=== PATIENT | male | born 1955 | race Two or more races ===

== ENCOUNTER 2024-12-01 12:18 | Emergency (ER) | payer OTHER ==
[~2024-12-01] VITALS: Ht 170.2 cm; Wt 70.2 kg
[2024-12-01 14:01] LABS: Urine Protein, UAD 1+ (Negative); Urine WBC Clumps PRESENT /hpf (None Seen)
--- NOTE | 2024-12-01 15:35 | ED.PDOC ---
General HPI Comments 69M presents to the ER w/ prior MHx of HTN, Prostate;SHx of Mass Sx and the c/c of urinary problems. Pt reports on having painful urination for 5 days and had his catheter removed 10 days ago. Pt's BP was elevated in triage of 170/109. Pt notes on not taking his BP medications today. Denies chills, fever, N/V/D, SOB, CP. Chief Complaint: Urinary Time Seen by MD: 15:30 Reviewed notes: Nurses Notes, Medications, Allergies Allergies: Coded Allergies: NO KNOWN ALLERGIES (Unverified , 12/01/24) Information Source: Patient Mode of Arrival: Ambulatory Severity: Moderate Inability to void: Moderate Timing: Days Duration: Since onset, Days Prehospital treatment: None Onset: Spontaneous Symptoms: Dysuria History of: Prostatitis Location: None associated signs and symptoms: Dysuria Past Medical History PAST MEDICAL HISTORY: HTN Past Medical History (Other): Prostate Surgical History: Denies all surgeries Family History Family History: Reviewed,noncontributory to illness, Unknown Social History Smoker: Non-Smoker Alcohol: Denies ETOH Use Drugs: Denies Drug Use Lives In: Home Constitutional: denies: chills, diaphoresis, fatigue, fever, malaise, sweats, weakness, others EENTM: denies: blurred vision, double vision, ear bleeding, ear discharge, ear drainage, ear pain, ear ringing, eye pain, eye redness, hearing loss, mouth pain, mouth swelling, nasal discharge, nose bleeding, nose congestion, nose pain, photophobia, tearing, throat pain, throat swelling, voice changes, others Respiratory: denies: cough, hemoptysis, orthopnea, SOB at rest, shortness of breath, SOB with excertion, stridor, wheezing, others Cardiovascular: denies: chest pain, dizzy spells, diaphoresis, Dyspnea on exertion, edema, irregular heart beat, left arm pain, lightheadedness, palpitations, PND, syncope, others Gastrointestinal: denies: abdomen distended, abdominal pain, blood streaked bowels, constipated, diarrhea, dysphagia, difficulty swallowing, hematemesis, melena, nausea, poor appetite, poor fluid intake, rectal bleeding, rectal pain, vomiting, others Genitourinary: reports: dysuria; denies: burning, flank pain, frequency, hematuria, incontinence, penile discharge, penile sore, pain, testicle pain, testicle swelling, urgency, others Neurological: denies: dizziness, fainting, headache, left sided numbness, left sided weakness, numbness, paresthesia, pre-existing deficit, right sided numbness, right sided weakness, seizure, speech problems, tingling, tremors, weakness, others Musculoskeletal: denies: back pain, gout, joint pain, joint swelling, muscle pain, muscle stiffness, neck pain, others Integumetry: denies: bruises, change in color, change in hair/nails, dryness, laceration, lesions, lumps, rash, wounds, others Allergic/Immunocompromised: denies: Difficulty Healing, Frequent Infections, Hives, Itching, others Hematologic/Lymphatic: denies: anemia, blood clots, easy bleeding, easy bruising, swollen glands, others Endocrine: denies: excessive hunger, excessive sweating, excessive thirst, excessive urination, flushing, intolerance to cold, intolerance to heat, unexplained weight gain, unexplained weight loss, others Psychiatric: denies: anxiety, bipolar disorder, depression, hopeless, panic disorder, schizophrenia, sleepless, suicidal, others All Other Systems: Reviewed and Negative Physical Exam General Appearance: No Apparent Distress, Normal HEENT: Normal ENT Inspection, PERRL/EOMI, Pharynx Normal, TMs Normal Neck: Full Range of Motion, Non-Tender, Normal, Normal Inspection Respiratory: Chest Non-Tender, Lungs Clear, No Accessory Muscle Use, No Respiratory Distress, Normal Breath Sounds Cardiovascular: No Edema, No JVD, No Murmur, No Gallop, Normal Peripheral Pulses, Regular Rate/Rhythm Breast Exam: Deferred Gastrointestinal: No Organomegaly, Non Tender, No Pulsatile Mass, Normal Bowel Sounds, Soft, Other (Bilateral flank pain) Genitalia: Deferred Pelvic: Deferred Rectal: Deferred Extremities: No calf tenderness, Normal capillary refill, Normal inspection, Normal range of motion, Non-tender, No pedal edema Musculoskeletal : Apperance: Normal Neurologic: Alert, water quality manager II-XII nml as Tested, No Motor Deficits, Normal Affect, Normal Mood, No Sensory Deficits Cerebellar Function: Normal Reflexes: Normal Skin: Dry, Normal Color, Warm Peripheral Pulses: 1+ carotid (R), 1+ carotid (L) Lymphatic: No Adenopathy Was a procedure done? Was a procedure done?: No Differential Diagnosis Kidney stone (Female): N/A Kidney stone (Male): DJD, Pyelonephritis, Urinary tract infection Penile/Scrotal: Prostatitis, UTI Urinary Problem (Male): Prostatitis, UTI Urinary Problem (Female): N/A X-Ray, Labs, Meds, VS Vital Signs Date Time Temp Pulse Resp B/P (MAP) Pulse Ox O2 Delivery O2 Flow Rate FiO2 12/01/24 12:28 98.7 108 20 170/109 (129) 95 98.7 Lab Test 12/01/24 12:34 Range/Units Urine Color Light-brown Yellow Urine Clarity Ex.turbid Clear Urine pH 6.0 5.0-9.0 Urine Specific [place] 1.009 1.001-1.035 Urine Protein 1+ H Negative Urine Ketones Negative Negative Urine Blood 2+ H Negative /uL Urine Nitrite 2+ H Negative Urine Bilirubin Negative Negative Urine Urobilinogen Normal Negative mg/dL Urine Leukocyte Esterase 3+ Negative /uL Urine RBC 35 0 - 3 /hpf Urine WBC Clumps Present None Seen /hpf Urine Microscopic WBC 5086 H 0-3 /HPF Urine Squamous Epithelial Cells None seen <5 /hpf Urine Bacteria None seen None Seen /hpf Urine Glucose Normal Normal mg/dL X-Ray, Labs, Meds, VS Comment 69-year-old male presented to the the department because of inability to urinate full and also feels tired no fever no chills neck the urine shows 1+ protein 2+ blood 3+ leukocyte esterase and white BC clumps Patient had a catheter in for long time for prostatitis Patient will be discharged home with antibiotic he received Rocephin in the ER Time of 1ST Reevaluation: 16:00 Reevaluation 1ST: Unchanged Consultation: PCP, Urology Patient Education/Counseling: Diagnosis, Treatment, Prognosis, Need For Follow Up Family Education/Counseling: Diagnosis, Treatment, Prognosis, Need For Follow Up, No Family Present SEPSIS Sepsis Screen Date sepsis recognized/suspect: Dec 01, 2024 Time Sepsis recognized/suspect: 1229 Recent Procedure: No On Antibiotic Therapy: No Respiratory Rate >20: No Heart Rate >90: Yes Temp<36 C (96.8 F) or >38.3 C: No SBP <90 or MAP <65 mmHG: No New Acute Mental Status Change: No Is the patient on CPAP, BIPAP,: No Vital Signs Date Time Temp Pulse Resp B/P (MAP) Pulse Ox O2 Delivery O2 Flow Rate FiO2 12/01/24 12:28 98.7 108 20 170/109 (129) 95 98.7 Departure 1 Departure Time of Disposition: 16:08 Impression: Primary Impression: Prostatitis Additional Impressions: UTI (urinary tract infection) Hypertension BPH (benign prostatic hyperplasia) Disposition: HOME / SELF CARE / HOMELESS Condition: Fair Additional Instructions: Push fluids and follow up with your urologist e-Prescriptions Tamsulosin Hcl (Flomax) 0.4 Mg Cap 0.4 MG PO DAILY for 15 Days, #15 CAP Prov: BRAYAN LEON MD 12/01/24 Ciprofloxacin Hcl (Cipro) 500 Mg Tab 1 TAB PO BID for 10 Days, #20 TAB Prov: BRAYAN LEON MD 12/01/24 Discharged With: Self Critical Care Note Critical Care Time?: No Stability Stability form required: No Heart Score Heart Score: Heart Score Response (Comments) Value History N/A 0 EKG N/A 0 Age >65 2 Risk Factors 1 or 2 risk factors 1 Troponin N/A 0 Total 3 I personally scribed for BRAYAN LEON MD ([email or web address]) on 12/01/24 at 15:35. Electronically submitted by Francisco Pinzon ([email or web address]). BRAYAN LEON MD Dec 01, 2024 15:35
[2024-12-01] MEDS ORDERED: cefTRIAXone W LIDOCAINE 1 GM IM IM ONE (15:45)
[2024-12-01] MEDS ORDERED: TAMS-35 PO (16:11)
[2024-12-01] MEDS ORDERED: CIPR-173 PO (16:11)
[2024-12-01 16:24] VITALS: BP 177/108; TEMP 98.4
[2024-12-01] MEDS: cefTRIAXone SOD 1,000 MG VL IM ONE (16:35)
[2024-12-01] MEDS: HYDROcodone-ACET 5/325MG TAB PO ONE (16:35)
[2024-12-01] MEDS: LIDOCAINE 1% HCL (LOCAL ANESTH.) INJ 20ML MDV IJ ONE (16:36)
[2024-12-01 16:52] VITALS: PULSE 84; RESP 16; O2SAT 98
== END 2024-12-01 16:55 | disposition home or self-care (01) ==
LOC: ER 12:18
DX: N41.9 Inflammatory disease of prostate, unspecified (principal); N39.0 Urinary tract infection, site not specified; N40.0 Benign prostatic hyperplasia without lower urinary tract symptoms; I10 Essential (primary) hypertension; Z91.148 Patient's other noncompliance with medication regimen for other reason
CPT/HCPCS: 81001; 96372; 99283; J0696; J2003

== ENCOUNTER 2025-01-13 17:22 | Inpatient (IN) | payer OTHER ==
[~2025-01-13] VITALS: Ht 170.2 cm; Wt 72.7 kg
[~2025-01-13 17:22] MED LIST: CIPR-173 PO; TAMS-35 PO
[2025-01-13] MEDS ORDERED: CEFD300C2 PO (18:29)
[2025-01-13] MEDS ORDERED: ONDA-180 PO (18:29)
[2025-01-13] MEDS ORDERED: AMLO1TAB22 PO (18:29)
[2025-01-13 18:35] LABS: Hematocrit 36.7 % (41.0-53.0); Hemoglobin 12.3 g/dL (13.5-17.5); Mean Corpuscular Hemoglobin 27.6 pg (28.0-32.0); Mean Corpuscular Volume 82.4 fL (80.0-100.0); Nucleated Red Blood Cells % 0.0 %
--- NOTE | 2025-01-13 18:37 | ED.PDOC ---
History of Present Illness HPI Comments 69 y/o M presents with nonradiating, lower abdominal cramping, nausea, vomiting, and occasional shortness of breath. Patient endorses on onset of symptoms 4x days into his Levaquin antibiotic treatment he was prescribed by his PCP for 2x week history of dysuria for UTI. Patient comments on still having symptoms after complete cessation of medication 3x days ago. He states on being able to eat, this morning, without vomiting. Denial of any fever, chills, diarrhea, constipation, chest pain, or further associated symptoms. Chief Complaint: Urinary Time Seen by MD: 18:15 Reviewed Notes: Nurses Notes, Medications, Allergies Allergies: Coded Allergies: NO KNOWN ALLERGIES (Unverified , 12/01/24) Home Meds Active Scripts Amlodipine Besylate (Amlodipine Besylate) 5 Mg Tab, 1 TAB PO DAILY, #90 TAB 3 Refills Prov:CAMRON ASHLEY MD 01/13/25 Ondansetron HCl (Ondansetron Hydrochloride) 8 Mg Tab, 8 MG PO Q6HP PRN, #30 TAB Prov:CAMRON ASHLEY MD 01/13/25 Cefdinir (Cefdinir) 300 Mg Cap, 1 CAP PO BID for 10 Days, #20 CAP Prov:CAMRON ASHLEY MD 01/13/25 Tamsulosin Hcl (Flomax) 0.4 Mg Cap, 0.4 MG PO DAILY for 15 Days, #15 CAP Prov:BRAYAN LEON MD 12/01/24 Ciprofloxacin Hcl (Cipro) 500 Mg Tab, 1 TAB PO BID for 10 Days, #20 TAB Prov:BRAYAN LEON MD 12/01/24 Information Source: Patient Mode of Arrival: Ambulatory Past Medical History PAST MEDICAL HISTORY: HTN Surgical History: Denies all surgeries Family History Family History: Reviewed,noncontributory to illness, Unknown Social History Smoker: Non-Smoker Alcohol: Denies ETOH Use Drugs: Denies Drug Use Lives In: Home All Other Systems: Reviewed and Negative (Comprehensive systems review obtained and negative except for what is stated in the HPI.) Physical Exam General Appearance: Mild Distress, Normal HEENT: Normal ENT Inspection, Pharynx Normal, TMs Normal Neck: Full Range of Motion, Non-Tender, Normal, Normal Inspection Respiratory: Chest Non-Tender, Lungs Clear, No Accessory Muscle Use, No Respiratory Distress, Normal Breath Sounds Cardiovascular: No Edema, No JVD, No Murmur, No Gallop, Normal Peripheral Pulses, Regular Rate/Rhythm Breast Exam: Deferred Gastrointestinal: No Organomegaly, Non Tender, No Pulsatile Mass, Normal Bowel Sounds, Soft Genitalia: Deferred Pelvic: Deferred Rectal: Deferred Extremities: No calf tenderness, Normal capillary refill, Normal inspection, Normal range of motion, Non-tender, No pedal edema Musculoskeletal : Apperance: Normal Neurologic: Alert, flyer builder II-XII nml as Tested, No Motor Deficits, Normal Affect, Normal Mood, No Sensory Deficits Cerebellar Function: Normal Reflexes: Normal Skin: Dry, Normal Color, Warm Lymphatic: No Adenopathy Was a procedure done? Was a procedure done?: Yes Sedation Sedation?: No Informed consent obtained: Yes Other Procedure Procedure indwelling cary catheter Indication urinary retention with renal failure Anesthetic topical Prep betadyne Success yes Informed consent obtained: Yes Risks, benefits, and alternati: Yes Notes 24 fr coude Differential Dx Considerations may include: UTI, gastritis, gastroenteritis, viral syndrome, electrolyte imbalance, dehydration, unintended medication side effect, among others X-Ray, Labs, Meds, VS Vital Signs Date Time Temp Pulse Resp B/P (MAP) Pulse Ox O2 Delivery O2 Flow Rate FiO2 01/14/25 00:30 85 16 140/82 01/13/25 22:35 Room Air* 0 21 01/13/25 22:35 97.4 99 12 163/88 (113) 98 97.4 01/13/25 19:23 175/106 01/13/25 19:02 Room Air* 0 21 01/13/25 19:00 97.9 90 16 175/106 (129) 96 97.9 01/13/25 17:24 97.8 97 18 188/108 88 97.8 Lab Test 01/14/25 00:54 01/13/25 23:13 01/13/25 22:52 01/13/25 19:09 Range/Units Potassium Level 4.6 3.5-5.1 mmol/L POC Glucose 239 H 125 H 70-106 mg/dl Lactic Acid Level 1.2 0.4-2.0 mmol/L Test 01/13/25 18:25 01/13/25 18:00 Range/Units White Blood Count 9.8 4.4-10.8 10^3/uL Red Blood Count 4.45 L 4.5-5.90 10^6/uL Hemoglobin 12.3 L 13.5-17.5 g/dL Hematocrit 36.7 L 41.0-53.0 % Mean Corpuscular Volume 82.4 80.0-100.0 fL Mean Corpuscular Hemoglobin 27.6 L 28.0-32.0 pg Mean Corpuscular Hemoglobin Concent 33.5 32.0-36.0 g/dL Red Cell Distribution Width 15.0 H 11.8-14.3 % Platelet Count 256 140-450 10^3/uL Mean Platelet Volume 7.1 6.9-10.8 fL Neutrophils (%) (Auto) 74.0 37.0-80.0 % Lymphocytes (%) (Auto) 19.1 10.0-50.0 % Monocytes (%) (Auto) 5.4 0.0-12.0 % Eosinophils (%) (Auto) 1.2 0.0-7.0 % Basophils (%) (Auto) 0.3 0.0-2.0 % Neutrophils # (Auto) 7.2 1.6-8.6 10 ^3/uL Lymphocytes # (Auto) 1.9 0.4-5.4 10 ^3/uL Monocytes # (Auto) 0.5 0-1.3 10 ^3/uL Eosinophils # (Auto) 0.1 0-0.8 10 ^3/uL Basophils # (Auto) 0 0-0.2 10 ^3/uL Nucleated Red Blood Cells 0.0 % Sodium Level 136 136-145 mmol/L Potassium Level 6.2 *H 3.5-5.1 mmol/L Chloride Level 103 98-107 mmol/L Carbon Dioxide Level 20 20-31 mmol/L Anion Gap 13 5-15 Blood Urea Nitrogen 107 *H 9-23 mg/dL Creatinine 12.99 *H 0.700-1.30 mg/dL Glomerular Filtration Rate Calc 4 >90 mL/min BUN/Creatinine Ratio 8.2 L 10.0-20.0 Serum Glucose 85 74-106 mg/dL Calcium Level 9.5 8.7-10.4 mg/dL Total Bilirubin 0.5 0.2-1.0 mg/dL Aspartate Amino Transferase (AST) 18 13-40 U/L Alanine Aminotransferase (ALT) 20 7-40 U/L Alkaline Phosphatase 125 H 46-116 U/L Total Protein 7.1 5.7-8.2 g/dL Albumin 4.5 3.2-4.8 g/dL Lipase 65 H 12-53 U/L Urine Color Colorless Yellow Urine Clarity Clear Clear Urine pH 6.5 5.0-9.0 Urine Specific [place] 1.008 1.001-1.035 Urine Protein Negative Negative Urine Ketones Negative Negative Urine Blood Trace H Negative /uL Urine Nitrite Negative Negative Urine Bilirubin Negative Negative Urine Urobilinogen Normal Negative mg/dL Urine Leukocyte Esterase Negative Negative /uL Urine RBC 1 0 - 3 /hpf Urine Microscopic WBC 2 0-3 /HPF Urine Squamous Epithelial Cells None seen <5 /hpf Urine Bacteria None seen None Seen /hpf Urine Glucose Normal Normal mg/dL Current Medications Medications (Trade) Dose Ordered Sig/Delmis Route Start Time Stop Time Status Last Admin Hydralazine HCl (Apresoline Tablet) 25 mg ONCE ONCE PO 01/13/25 18:30 01/13/25 18:31 DC 01/13/25 19:23 Sodium Chloride 500 ml @ 500 mls/hr Q1H ONCE IV 01/13/25 19:00 01/13/25 19:59 DC 01/13/25 19:22 Ceftriaxone Sodium 50 ml @ 100 mls/hr ONCE ONCE IV 01/13/25 19:00 01/13/25 19:29 DC 01/13/25 19:22 Zirconium Oxide (Lokelma) 10 gm ONCE ONCE PO 01/13/25 19:00 01/13/25 19:01 DC 01/13/25 19:22 Insulin Human Regular (InsuLIN R) 10 units ONCE ONCE IV 01/13/25 21:00 01/13/25 21:03 DC 01/13/25 23:00 Dextrose 50 ml ONCE ONCE IV 01/13/25 21:00 01/13/25 21:03 DC 01/13/25 22:10 Sodium Bicarbonate 50 ml ONCE ONCE IV 01/13/25 21:00 01/13/25 21:03 DC 01/13/25 23:00 Calcium Gluconate/ Sodium Chloride 50 ml @ 120 mls/hr ONCE ONCE IV 01/13/25 21:00 01/13/25 21:24 DC 01/13/25 23:00 Morphine Sulfate 4 mg ONCE ONCE IV 01/14/25 00:00 01/14/25 00:01 DC 01/14/25 00:30 Time of 1ST Reevaluation: 18:45 Reevaluation 1ST: Unchanged Patient Education/Counseling: Diagnosis, Treatment, Need For Follow Up Family Education/Counseling: No Family Present SEPSIS Sepsis Screen Date sepsis recognized/suspect: Jan 13, 2025 Time Sepsis recognized/suspect: 1725 Recent Procedure: No On Antibiotic Therapy: No Respiratory Rate >20: No Heart Rate >90: No Temp<36 C (96.8 F) or >38.3 C: No SBP <90 or MAP <65 mmHG: No New Acute Mental Status Change: No Is the patient on CPAP, BIPAP,: No Physician Orders Ct Ab Pel Wo Con-No Oral Or Iv (01/13/25 18:54) Insert Cary Catheter QSHIFT (01/13/25 18:55) Blood Culture (01/13/25 18:57) Communication Order (01/13/25 20:51) Admit (01/14/25 01:46) Code Status (01/14/25 01:46) Vital Signs .PER UNIT PROTOCOL (01/14/25 01:46) Review Orders With Adm. (01/14/25 01:46) Encourage Activity As Tolerate (01/14/25 01:46) Sodium Chloride 0.9% (01/14/25 02:00) Oxygen By Face Mask (01/14/25 01:46) Docusate Sodium Capsule (Colace Capsule) (01/14/25 02:00) Acetaminophen Tablet (Tylenol Tablet) (01/14/25 02:00) Notify Md Of Changes From Base (01/14/25 01:46) Advance Directive (01/14/25 01:46) Basic Metabolic Panel (01/14/25 05:00) Basic Metabolic Panel (01/15/25 05:00) Basic Metabolic Panel (01/16/25 05:00) Basic Metabolic Panel (01/17/25 05:00) Basic Metabolic Panel (01/18/25 05:00) Basic Metabolic Panel (01/19/25 05:00) Complete Blood Count (01/14/25 05:00) Complete Blood Count (01/15/25 05:00) Complete Blood Count (01/16/25 05:00) Complete Blood Count (01/17/25 05:00) Complete Blood Count (01/18/25 05:00) Complete Blood Count (01/19/25 05:00) Urine Bacterial Culture (01/14/25 01:46) Patient Condition (01/14/25 01:46) Allergies (01/14/25 01:46) Hydrocodone-Acet 5/325mg Tab ([place] 5/32 (01/14/25 02:00) Ondansetron Hcl (Zofran) (01/14/25 02:00) Morphine Sulfate Injection (01/14/25 02:00) Sequential Compression Device (01/14/25 ) Nitroglycerin Sublingual (Ntrostat Subli (01/14/25 02:00) Morphine Sulfate Injection (01/14/25 02:00) Stat Ekg For Chest Pain (01/14/25 01:46) Notify Md Of Changes From Base (01/14/25 01:46) Automatic Lathe Setter For 24 Hours (01/14/25 01:46) Emergency Dysrhythmia Protocol (01/14/25 01:46) Rhythm Strips Once Every Shift (01/14/25 01:46) Oxygen By Nasal Cannula (01/14/25 01:46) Kidney (01/14/25 01:46) *[facility] (01/14/25 01:46) * Urology Consult (01/14/25 01:46) Renal Standard(2gna,3gk,Lopho) (01/14/25 Breakfast) Ceftriaxone 1gm/50ml D5w (Rocephin) (01/14/25 21:00) Tamsulosin Hydrochloride (Flomax) (01/14/25 10:00) Hydralazine Injection (Apresoline Inject (01/14/25 02:00) Vital Signs Date Time Temp Pulse Resp B/P (MAP) Pulse Ox O2 Delivery O2 Flow Rate FiO2 01/14/25 00:30 85 16 140/82 01/13/25 22:35 Room Air* 0 21 01/13/25 22:35 97.4 99 12 163/88 (113) 98 97.4 01/13/25 19:23 175/106 01/13/25 19:02 Room Air* 0 21 01/13/25 19:00 97.9 90 16 175/106 (129) 96 97.9 01/13/25 17:24 97.8 97 18 188/108 88 97.8 Laboratory Tests Test 01/13/25 18:25 01/13/25 19:09 White Blood Count 9.8 10^3/uL (4.4-10.8) Lactic Acid Level 1.2 mmol/L (0.4-2.0) Medications Medications Dose Ordered Sig/Delmis Route Start Time Stop Time Status Last Admin Dose Admin Calcium Gluconate/ Sodium Chloride 50 ml @ 120 mls/hr ONCE ONCE IV 01/13/25 21:00 01/13/25 21:24 DC 01/13/25 23:00 Ceftriaxone Sodium 50 ml @ 100 mls/hr ONCE ONCE IV 01/13/25 19:00 01/13/25 19:29 DC 01/13/25 19:22 Dextrose 50 ml ONCE ONCE IV 01/13/25 21:00 01/13/25 21:03 DC 01/13/25 22:10 Hydralazine HCl 25 mg ONCE ONCE PO 01/13/25 18:30 01/13/25 18:31 DC 01/13/25 19:23 Insulin Human Regular 10 units ONCE ONCE IV 01/13/25 21:00 01/13/25 21:03 DC 01/13/25 23:00 Morphine Sulfate 4 mg ONCE ONCE IV 01/14/25 00:00 01/14/25 00:01 DC 01/14/25 00:30 Sodium Bicarbonate 50 ml ONCE ONCE IV 01/13/25 21:00 01/13/25 21:03 DC 01/13/25 23:00 Sodium Chloride 500 ml @ 500 mls/hr Q1H ONCE IV 01/13/25 19:00 01/13/25 19:59 DC 01/13/25 19:22 Zirconium Oxide 10 gm ONCE ONCE PO 01/13/25 19:00 01/13/25 19:01 DC 01/13/25 19:22 Departure 1 Departure Time of Disposition: 20:30 Impression: Primary Impression: UTI (urinary tract infection) Additional Impressions: BPH (benign prostatic hyperplasia) Hypertension Disposition: 09 ADMITTED INPATIENT Condition: Stable Additional Instructions: Follow up with your primary physician Return to the Emergency Department for any worsening symptoms or concerns e-Prescriptions Amlodipine Besylate (Amlodipine Besylate) 5 Mg Tab 1 TAB PO DAILY, #90 TAB 3 Refills Prov: NOWLIS,CAMRON A MD 01/13/25 Ondansetron HCl (Ondansetron Hydrochloride) 8 Mg Tab 8 MG PO Q6HP PRN, #30 TAB Prov: CAMRON ASHLEY MD 01/13/25 Cefdinir (Cefdinir) 300 Mg Cap 1 CAP PO BID for 10 Days, #20 CAP Prov: CAMRON ASHLEY MD 01/13/25 Comments 69-year-old male with acute renal failure with hyperkalemia due to acute urinary retention. I was able to place a Cary catheter with clear urine drainage. Patient had hyperkalemia and was given Lokelma. Patient will need to be admitted for acute urinary retention and acute renal failure with hyperkalemia Critical Care Note Critical Care Time?: No Stability Stability form required: No Heart Score Heart Score: Heart Score Response (Comments) Value History N/A 0 EKG N/A 0 Age N/A 0 Risk Factors N/A 0 Troponin N/A 0 Total 0 I personally scribed for CAMRON ASHLEY MD ([email or web address]) on 01/13/25 at 18:37. Electronically submitted by Howard Gamboa ([email or web address]). CAMRON ASHLEY MD Jan 13, 2025 18:37
[2025-01-13 18:40] LABS: Urine Protein, UAD Negative (Negative)
[2025-01-13 18:48] LABS: Alanine Aminotransferase 20 U/L (7-40); Albumin 4.5 g/dL (3.2-4.8); Anion Gap 13 (5-15); BUN/Creatinine Ratio 8.2 (10.0-20.0); Calcium 9.5 mg/dL (8.7-10.4); Carbon Dioxide 20 mmol/L (20-31); Chloride 103 mmol/L (98-107); Glucose 85 mg/dL (74-106); Sodium 136 mmol/L (136-145); Total Protein 7.1 g/dL (5.7-8.2)
[2025-01-13 18:49] LABS: Bilirubin, Total 0.5 mg/dL (0.2-1.0)
[2025-01-13 18:51] LABS: Alkaline Phosphatase 125 U/L (46-116); Lipase 65 U/L (12-53)
[2025-01-13 18:52] LABS: Blood Urea Nitrogen 107 mg/dL (9-23); Potassium 6.2 mmol/L (3.5-5.1)
[2025-01-13] MEDS: SODIUM CHLORIDE 0.9% 500 ML IV ONE (19:22)
[2025-01-13] MEDS: SODIUM ZIRCONIUM CYCL 10 GM PAK PO ONE (19:22)
--- NOTE | 2025-01-13 19:31 | DVH ---
COMPUTERIZED TOMOGRAPHY ABDOMEN AND PELVIS WITHOUT CONTRAST REASON FOR EXAM: abd pain / renal failure COMPARISON: None TECHNIQUE: Spiral scans were acquired from the diaphragm to the symphysis pubis without intravenous c ontrast administration. 2-D coronal and sagittal reformatted images were provided. Radiation optimiza tion: All CT scans at this facility use at least one of these dose optimization techniques: Automated exposure control mA and/or kV adjustment per patient size (includes targeted exams where dose is mat ched to clinical indication) or iterative reconstruction. RADIATION DOSE: CTDI: 6.93 mGy DLP: 361.43 mGy-cm FINDINGS: The visualized lung bases are clear. There is no pleural effusion. There is no pericardial effusion. The spleen is not enlarged. The liver is normal in size and contour. Evaluation of the abdominal orga ns is suboptimal in the absence of intravenous contrast. No calcified gallstone is identified. There is no pericholecystic edema. Unenhanced appearance of the pancreas is grossly unremarkable. The adr enal glands are normal. The kidneys are similar in size. There is a simple appearing 2.4 cm exophytic cyst of the superior pole of the left kidney which requires no dedicated follow-up. There is severe bilateral hydroureteronephrosis. No renal, ureteral, or bladder calculus is identified. The bladder a ppears thick-walled and trabeculated consistent with chronic outlet obstruction. The prostate is mas sively enlarged. There is partial visualization of right scrotal hydrocele. The colonic stool burden is small. The appendix is not seen. There is no inflammatory change about the cecum to suggest acute appendicitis. There is no distention of the small bowel. No free fluid is identified in the abdomen or pelvis. There is no pathologic lymphadenopathy by size criteria. No acute osseous abnormality is identified. There are old, healed right-sided rib fractures. There are degenerative changes in the l umbar spine. There is grade 1 anterolisthesis of L4 on L5. IMPRESSION: Massive prostatomegaly with evidence of urinary bladder chronic outlet obstruction. Correlate clinica lly for possible cystitis. Severe bilateral hydroureteronephrosis likely secondary to bladder outlet obstruction by the prostate .
[2025-01-13] MEDS: DEXTROSE (50%) 50ML SYRG IV ONE (22:10)
--- NOTE | 2025-01-13 22:32 | PRN ---
Misceleneous Note Note Note Patient was seen and evaluated ER treatment area. At this time I did discuss all critical lab findings including CT imaging results with the patient. I have advised him that he will need to be admitted to the hospital at this time. Spoke with ER charge nurse regarding completion of all the emergency department orders including treatment for hyperkalemia and indwelling f/c placement. At this time admission is pending emergency department compliance and stabilization of patient. SHANIQUA ALVARES NP Jan 13, 2025 22:32
[2025-01-13] MEDS: SODIUM BICARB 8.4% 50Meq/50ml SYR INJ IV ONE (23:00)
[2025-01-13] MEDS: CALCIUM GLUC 1,000mg/50ml-NS 50 ML IV ONE (23:00)
[2025-01-13] MEDS: InsuLIN REG 1unit/0.01ml Soln (100units/ml) IV ONE (23:00)
[2025-01-14] MEDS: MORPHINE SULFATE 4 MG/ML SYR/VIAL IV ONE (00:30)
[2025-01-14] MEDS ORDERED: ACETAMINOPHEN 325 MG TAB PO PRN (02:00)
[2025-01-14] MEDS ORDERED: MORPHINE SULFATE INJ 2 MG/ml SYRG IV PRN (02:00)
[2025-01-14] MEDS ORDERED: NITROGLYCERIN 0.4 MG SL TAB SL PRN (02:00)
--- NOTE | 2025-01-14 02:06 | DVHHP2 ---
SHANIQUA ALVARES CLINICAL PROGRAM MANAGER 01/14/25 0206: History of Present Illness Reason for Visit: urinary discomfort History of Present Illness 69-year-old male with past medical history of hypertension presents with complaints of urinary discomfort x2 weeks. Patient states he recently went to his PCP with was treated for UTI. However was unable to tolerate antibiotic treatments due to GI side effects. During the emergency department evaluation W9.8, H&H 12.3/36.7, PLT 256, Na 136, K6.2, BUN 107, creatinine 12.99, GFR 4. Patient denies having any previous kidney problems or being aware of enlarged prostate. CT of the abdomen and pelvis without contrast impression reads massive prostate megaly with evidence of urinary bladder chronic outlet obstruction. Correlate clinically for possible cystitis. Severe bilateral hydroureteronephrosis likely secondary to bladder obstruction by the prostate. At this time patient denies any fevers, chills, headaches, confusion, dizziness, shortness of breath, chest pain, nausea, vomiting, leg swelling. Cardiovascular: HTN Smoke: No ALCOHOL: none Lives: with Family Review of Systems Constitutional: Yes: Malaise; No: Fever, Chills, Sweats, Weakness, Other Eyes: No: Pain, Vision change, Conjunctivae inflammation, Eyelid inflammation, Other, Redness ENT: No: Ear pain, Ear discharge, Nose pain, Nose discharge, Nose congestion, Mouth pain, Mouth swelling, Throat pain, Throat swelling, Other Respiratory: No: Cough, Dry, Shortness of breath, SOB with excertion, Wheezing, Hemoptysis, Pleuritic Pain, Sputum, Wheezing, Other Cardiovascular: No: Chest Pain, Palpitations, Orthopnea, Paroxysmal Noc. Dyspnea, Edema, Lt Headedness, Other Gastrointestinal: No: Nausea, Vomiting, Abdominal Pain, Diarrhea, Constipation, Melena, Hematochezia, Other Genitourinary: Dysuria, Frequency; No Incontinence, No Hematuria; Retention; No Other Musculoskeletal: No: other, neck pain, shoulder pain, arm pain, back pain, hand pain, leg pain, foot pain Skin: No: Rash, Lesions, Jaundice, Bruising, Other Neurological: No: Weakness, Numbness, Incoordination, Change in speech, Confusion, Seizures, Other Allergies: Coded Allergies: NO KNOWN ALLERGIES (Unverified , 12/01/24) Medications Current Medications Medications Dose Ordered Sig/Delmis Route Start Time Stop Time Status Last Admin Dose Admin Sodium Chloride 1,000 ml @ 100 mls/hr Q10H IV 01/14/25 02:00 01/14/25 11:59 UNV Docusate Sodium 100 mg BIDPRN PRN PO 01/14/25 02:00 UNV Acetaminophen 650 mg Q6HP PRN PO 01/14/25 02:00 UNV Acetaminophen/ Hydrocodone Bitart 1 tab Q4HP PRN PO 01/14/25 02:00 UNV Ondansetron HCl 4 mg Q4HP PRN IV 01/14/25 02:00 UNV Exam Vital Signs Vital Signs Date Time Temp Pulse Resp B/P (MAP) Pulse Ox O2 Delivery O2 Flow Rate FiO2 01/14/25 00:30 85 16 140/82 01/13/25 22:35 Room Air* 0 21 01/13/25 22:35 97.4 98 97.4 General Appearance: Alert, Oriented X3, Cooperative, moderate distress HEENT: Atraumatic, PERRLA, EOMI Respiratory: Clear to auscultation, Normal air movement Cardiovascular: Regular rate, Normal S1, Normal S2 Abdominal: Normal bowel sounds, Soft, No tenderness Extremities: No clubbing, No cyanosis, No edema Skin: No rashes, No breakdown Neuro: Normal speech, Strength at 5/5 X4 ext Psych/Mental Status: Mental status NL, Mood NL Labs/Xrays Labs Test 01/14/25 00:54 01/13/25 23:13 01/13/25 19:09 01/13/25 18:25 Range/Units Potassium Level 4.6 3.5-5.1 mmol/L POC Glucose 239 H 70-106 mg/dl Lactic Acid Level 1.2 0.4-2.0 mmol/L White Blood Count 9.8 4.4-10.8 10^3/uL Red Blood Count 4.45 L 4.5-5.90 10^6/uL Hemoglobin 12.3 L 13.5-17.5 g/dL Hematocrit 36.7 L 41.0-53.0 % Mean Corpuscular Volume 82.4 80.0-100.0 fL Mean Corpuscular Hemoglobin 27.6 L 28.0-32.0 pg Mean Corpuscular Hemoglobin Concent 33.5 32.0-36.0 g/dL Red Cell Distribution Width 15.0 H 11.8-14.3 % Platelet Count 256 140-450 10^3/uL Mean Platelet Volume 7.1 6.9-10.8 fL Neutrophils (%) (Auto) 74.0 37.0-80.0 % Lymphocytes (%) (Auto) 19.1 10.0-50.0 % Monocytes (%) (Auto) 5.4 0.0-12.0 % Eosinophils (%) (Auto) 1.2 0.0-7.0 % Basophils (%) (Auto) 0.3 0.0-2.0 % Neutrophils # (Auto) 7.2 1.6-8.6 10 ^3/uL Lymphocytes # (Auto) 1.9 0.4-5.4 10 ^3/uL Monocytes # (Auto) 0.5 0-1.3 10 ^3/uL Eosinophils # (Auto) 0.1 0-0.8 10 ^3/uL Basophils # (Auto) 0 0-0.2 10 ^3/uL Nucleated Red Blood Cells 0.0 % Sodium Level 136 136-145 mmol/L Chloride Level 103 98-107 mmol/L Carbon Dioxide Level 20 20-31 mmol/L Anion Gap 13 5-15 Blood Urea Nitrogen 107 *H 9-23 mg/dL Creatinine 12.99 *H 0.700-1.30 mg/dL Glomerular Filtration Rate Calc 4 >90 mL/min BUN/Creatinine Ratio 8.2 L 10.0-20.0 Serum Glucose 85 74-106 mg/dL Calcium Level 9.5 8.7-10.4 mg/dL Total Bilirubin 0.5 0.2-1.0 mg/dL Aspartate Amino Transferase (AST) 18 13-40 U/L Alanine Aminotransferase (ALT) 20 7-40 U/L Alkaline Phosphatase 125 H 46-116 U/L Total Protein 7.1 5.7-8.2 g/dL Albumin 4.5 3.2-4.8 g/dL Lipase 65 H 12-53 U/L Test 01/13/25 18:00 Range/Units Urine Color Colorless Yellow Urine Clarity Clear Clear Urine pH 6.5 5.0-9.0 Urine Specific [place] 1.008 1.001-1.035 Urine Protein Negative Negative Urine Ketones Negative Negative Urine Blood Trace H Negative /uL Urine Nitrite Negative Negative Urine Bilirubin Negative Negative Urine Urobilinogen Normal Negative mg/dL Urine Leukocyte Esterase Negative Negative /uL Urine RBC 1 0 - 3 /hpf Urine Microscopic WBC 2 0-3 /HPF Urine Squamous Epithelial Cells None seen <5 /hpf Urine Bacteria None seen None Seen /hpf Urine Glucose Normal Normal mg/dL SEPSIS Sepsis Screen Date sepsis recognized/suspect: Jan 13, 2025 Time Sepsis recognized/suspect: 2234 Recent Procedure: No On Antibiotic Therapy: No Respiratory Rate >20: No Heart Rate >90: Yes Temp<36 C (96.8 F) or >38.3 C: No SBP <90 or MAP <65 mmHG: No New Acute Mental Status Change: No Is the patient on CPAP, BIPAP,: No Physician Orders Ct Ab Pel Wo Con-No Oral Or Iv (01/13/25 18:54) Insert Harper Catheter QSHIFT (01/13/25 18:55) Blood Culture (01/13/25 18:57) Communication Order (01/13/25 20:51) Admit (01/14/25 01:46) Code Status (01/14/25 01:46) Vital Signs .PER UNIT PROTOCOL (01/14/25 01:46) Review Orders With Adm.Md (01/14/25 01:46) Encourage Activity As Tolerate (01/14/25 01:46) Sodium Chloride 0.9% (01/14/25 02:00) Oxygen By Face Mask (01/14/25 01:46) Docusate Sodium Capsule (Colace Capsule) (01/14/25 02:00) Acetaminophen Tablet (Tylenol Tablet) (01/14/25 02:00) Notify Md Of Changes From Base (01/14/25 01:46) Advance Directive (01/14/25 01:46) Basic Metabolic Panel (01/14/25 05:00) Basic Metabolic Panel (01/15/25 05:00) Basic Metabolic Panel (01/16/25 05:00) Basic Metabolic Panel (01/17/25 05:00) Basic Metabolic Panel (01/18/25 05:00) Basic Metabolic Panel (01/19/25 05:00) Complete Blood Count (01/14/25 05:00) Complete Blood Count (01/15/25 05:00) Complete Blood Count (01/16/25 05:00) Complete Blood Count (01/17/25 05:00) Complete Blood Count (01/18/25 05:00) Complete Blood Count (01/19/25 05:00) Urine Bacterial Culture (01/14/25 01:46) Patient Condition (01/14/25 01:46) Allergies (01/14/25 01:46) Hydrocodone-Acet 5/325mg Tab (Karval 5/32 (01/14/25 02:00) Ondansetron Hcl (Zofran) (01/14/25 02:00) Morphine Sulfate Injection (01/14/25 02:00) Sequential Compression Device (01/14/25 ) Nitroglycerin Sublingual (Ntrostat Subli (01/14/25 02:00) Morphine Sulfate Injection (01/14/25 02:00) Stat Ekg For Chest Pain (01/14/25 01:46) Notify Md Of Changes From Base (01/14/25 01:46) Tool Liaison For 24 Hours (01/14/25 01:46) Emergency Dysrhythmia Protocol (01/14/25 01:46) Rhythm Strips Once Every Shift (01/14/25 01:46) Oxygen By Nasal Cannula (01/14/25 01:46) Kidney (01/14/25 01:46) *[facility] (01/14/25 01:46) * Urology Consult (01/14/25 01:46) Renal Standard(2gna,3gk,Lopho) (01/14/25 Breakfast) Ceftriaxone Ivpb Rocephin (01/14/25 10:00) Tamsulosin Hydrochloride (Flomax) (01/14/25 10:00) Hydralazine Injection (Apresoline Inject (01/14/25 02:00) Vital Signs Date Time Temp Pulse Resp B/P (MAP) Pulse Ox O2 Delivery O2 Flow Rate FiO2 01/14/25 00:30 85 16 140/82 01/13/25 22:35 Room Air* 0 21 01/13/25 22:35 97.4 99 12 163/88 (113) 98 97.4 01/13/25 19:23 175/106 01/13/25 19:02 Room Air* 0 21 01/13/25 19:00 97.9 90 16 175/106 (129) 96 97.9 Laboratory Tests Test 01/13/25 18:25 01/13/25 19:09 White Blood Count 9.8 10^3/uL (4.4-10.8) Lactic Acid Level 1.2 mmol/L (0.4-2.0) Medications Medications Dose Ordered Sig/Delmis Route Start Time Stop Time Status Last Admin Dose Admin Calcium Gluconate/ Sodium Chloride 50 ml @ 120 mls/hr ONCE ONCE IV 01/13/25 21:00 01/13/25 21:24 DC 01/13/25 23:00 120 MLS/HR Ceftriaxone Sodium 50 ml @ 100 mls/hr ONCE ONCE IV 01/13/25 19:00 01/13/25 19:29 DC 01/13/25 19:22 100 MLS/HR Dextrose 50 ml ONCE ONCE IV 01/13/25 21:00 01/13/25 21:03 DC 01/13/25 22:10 50 ML Hydralazine HCl 25 mg ONCE ONCE PO 01/13/25 18:30 01/13/25 18:31 DC 01/13/25 19:23 25 MG Insulin Human Regular 10 units ONCE ONCE IV 01/13/25 21:00 01/13/25 21:03 DC 01/13/25 23:00 10 UNITS Morphine Sulfate 4 mg ONCE ONCE IV 01/14/25 00:00 01/14/25 00:01 DC 01/14/25 00:30 4 MG Sodium Bicarbonate 50 ml ONCE ONCE IV 01/13/25 21:00 01/13/25 21:03 DC 01/13/25 23:00 50 ML Sodium Chloride 500 ml @ 500 mls/hr Q1H ONCE IV 01/13/25 19:00 01/13/25 19:59 DC 01/13/25 19:22 500 MLS/HR Zirconium Oxide 10 gm ONCE ONCE PO 01/13/25 19:00 01/13/25 19:01 DC 01/13/25 19:22 10 GM Assessment/Plan Assessment/Plan Acute renal failure Hyperkalemia Bilateral hydroureteronephrosis secondary to obstructive uropathy Prostatomegally Hypertension Plan Admit telemetry Nephrology consult. Monitor BMP. Trend BUN/creatinine. Correct electrolytes as needed. Renal ultrasound. In dwelling Harper catheter. Strict. Is and Os. Urology consult. Flomax.. IVF Prophylactic Rocephin IV for UTI Renal diet Continue home medication. As needed antihypertensive for optimal BP management. DVT PPX heparin SQ Plan discussed with: Patient My Orders Orders - SHANIQUA ALVARES NP Procedure Category Date Status Time Communication Order ORDERS 01/13/25 Transmitted 20:51 Admit ADMIT 01/14/25 Transmitted 01:46 Code Status CODE 01/14/25 Transmitted 01:46 Vital Signs [facility] 01/14/25 In Process 01:46 Review Orders With [facility] 01/14/25 In Process Adm. 01:46 Encourage Activity As [facility] 01/14/25 In Process Tolerate 01:46 Sodium Chloride 0.9% [facility] 01/14/25 Logged 02:00 Oxygen By Face Mask RT 01/14/25 Transmitted 01:46 Docusate Sodium PHA 01/14/25 Logged Capsule (Colace 02:00 Acetaminophen Tablet PHA 01/14/25 Logged (Tylenol Tablet) 02:00 Notify Of Changes [facility] 01/14/25 In Process From Base 01:46 Advance Directive [facility] 01/14/25 In Process 01:46 Basic Metabolic Panel LAB 01/14/25 Logged 05:00 Basic Metabolic Panel LAB 01/15/25 Verified 05:00 Basic Metabolic Panel LAB 01/16/25 Verified 05:00 Basic Metabolic Panel LAB 01/17/25 Verified 05:00 Basic Metabolic Panel LAB 01/18/25 Verified 05:00 Basic Metabolic Panel LAB 01/19/25 Verified 05:00 Complete Blood Count LAB 01/14/25 Logged 05:00 Complete Blood Count LAB 01/15/25 Verified 05:00 Complete Blood Count LAB 01/16/25 Verified 05:00 Complete Blood Count LAB 01/17/25 Verified 05:00 Complete Blood Count LAB 01/18/25 Verified 05:00 Complete Blood Count LAB 01/19/25 Verified 05:00 Urine Bacterial [facility]ALBERTO 01/14/25 Logged Culture 01:46 Patient Condition ORDERS 01/14/25 Transmitted 01:46 Allergies [facility] 01/14/25 In Process 01:46 Hydrocodone-Acet PHA 01/14/25 Logged 5/325mg Tab (Karval 02:00 Ondansetron Hcl PHA 01/14/25 Logged (Zofran) 02:00 Morphine Sulfate [facility] 01/14/25 Logged Injection 02:00 Sequential [facility] 01/14/25 In Process Compression Device Nitroglycerin [facility] 01/14/25 Logged Sublingual (Ntrostat 02:00 Morphine Sulfate PHA 01/14/25 Transmitted Injection 02:00 Stat Ekg For Chest [facility] 01/14/25 In Process Pain 01:46 Notify Of Changes [facility] 01/14/25 In Process From Base 01:46 Tool Liaison For [facility] 01/14/25 In Process 24 Hours 01:46 Emergency Dysrhythmia [facility] 01/14/25 In Process Protocol 01:46 Rhythm Strips Once [facility] 01/14/25 In Process Every Shift 01:46 Oxygen By Nasal RT 01/14/25 Transmitted Cannula 01:46 Kidney US 01/14/25 Logged 01:46 *[facility] CONS 01/14/25 Transmitted -[place] 01:46 * Urology Consult CONS 01/14/25 Transmitted 01:46 Renal DIET 01/14/25 Transmitted Standard(2gna,3gk,Lopho) Breakfast Ceftriaxone Ivpb PHA 01/14/25 Transmitted Rocephin 10:00 Tamsulosin PHA 01/14/25 Transmitted Hydrochloride (Flomax) 10:00 Hydralazine Injection [facility] 01/14/25 Transmitted (Apresoline Inject 02:00 Date of Service: Jan 14, 2025 Billing Provider: JAHAIRA MCKINNEY MD Common Visit Codes: NOT BILLABLE JAHAIRA MCKINNEY MD 01/14/25 1737: Review of Systems Allergies: Coded Allergies: NO KNOWN ALLERGIES (Unverified , 12/01/24) SHANIQUA ALVARES NP Jan 14, 2025 02:06 JAHAIRA MCKINNEY MD Jan 14, 2025 17:37
[2025-01-14] MEDS: hydrALAZINE HCL 20 MG/ML VL IV PRN (03:43)
[2025-01-14 05:00] VITALS: BP 158/115; PULSE 114; RESP 16; TEMP 97.7; O2SAT 99
[2025-01-14] MEDS: SODIUM CHLORIDE 0.9% 1,000 ML IV SCH ×2 (05:00→12:45)
[2025-01-14] MEDS: ONDANSETRON HCL 4 MG/2 ML VIAL IV PRN (05:03)
[2025-01-14] MEDS: HYDROcodone-ACET 5/325MG TAB PO PRN (06:10)
[2025-01-14 06:48] LABS: Chloride 102 mmol/L (98-107); Potassium 5.0 mmol/L (3.5-5.1); Sodium 140 mmol/L (136-145)
[2025-01-14 06:49] LABS: Anion Gap 20 (5-15); Calcium 10.3 mg/dL (8.7-10.4)
[2025-01-14 06:54] LABS: BUN/Creatinine Ratio 6.8 (10.0-20.0)
[2025-01-14 07:30] LABS: Hematocrit 39.2 % (41.0-53.0); Hemoglobin 13.3 g/dL (13.5-17.5); Mean Corpuscular Hemoglobin 28.3 pg (28.0-32.0); Mean Corpuscular Volume 83.5 fL (80.0-100.0); Nucleated Red Blood Cells % 0.1 %
--- NOTE | 2025-01-14 07:35 | DVH ---
RENAL ULTRASOUND History: acute renal failure Comparison: None Technique: Multiple real-time sonographic images of the kidney and bladder were obtained in conjuncti on with Doppler imaging. Findings: The right kidney measures 10.4 cm and demonstrates no evidence of hydronephrosis, perinephric fluid c ollection, or shadowing stone. The left kidney measures 10.1 cm and demonstrates no evidence of hydronephrosis, perinephric fluid co llection, or shadowing stone. Urinary bladder: Prevoid urinary bladder volume is 221 mL. Impression: No hydronephrosis.
[2025-01-14 08:51] VITALS: BP 159/113; PULSE 114; RESP 18; TEMP 98; O2SAT 96
--- NOTE | 2025-01-14 09:30 | DVHCONRES ---
Date Seen: Jan 14, 2025 Resident Creating Document: GOODKATIE RODRIGESIL RESIDENT History of Present Illness 69-year-old male with past medical history of hypertension presented with urinary discomfort two weeks. Patient went to PCP was treated for UTI but did not complete the antibiotics as he was having GI side effects. On presenting to the ER, patient was found to be hypokalemic, was treated and was found to have deranged kidney function. She also mentioned associated vomiting episodes that started 2-3 days ago. Patient mentioned that two months ago he had similar admission in [facility] for bladder outlet obstruction where he has kidney was 5% functioning and after Harper's catheter placement improved to 50% and was discharged on Harper's catheter. Patient follow up with Urology in [facility] unknown name of after which his Harper's catheter was removed. Nephrology was consulted for MADHURI Patient had CT abdomen done which revealed massive prostate causing bladder outlet obstruction and possible hydronephrosis. Renal ultrasound done showed no hydronephrosis. Patient was initially started on IV fluids and Harper's catheter. Patient has been patient seen and examined at bedside Patient had multiple episodes of vomiting since the morning Mentioned mild pain in pelvic region Past medical history hypertension Medication history Amlodipine Ondansetron Flomax Past surgical history No recent surgery Social history Patient quit smoking 20 years ago, was smoking for 10 years Denied alcohol, marijuana or any other drug intake Family history Nonsignificant Past Medical History As described in the HPI Past Surgical History As described in the HPI Allergies: Coded Allergies: NO KNOWN ALLERGIES (Unverified , 12/01/24) Home Meds Active Scripts Amlodipine Besylate (Amlodipine Besylate) 5 Mg Tab, 1 TAB PO DAILY, #90 TAB 3 Refills Prov:CAMRON ASHLEY MD 01/13/25 Ondansetron HCl (Ondansetron Hydrochloride) 8 Mg Tab, 8 MG PO Q6HP PRN, #30 TAB Prov:CAMRON ASHLEY MD 01/13/25 Cefdinir (Cefdinir) 300 Mg Cap, 1 CAP PO BID for 10 Days, #20 CAP Prov:CAMRON ASHLEY MD 01/13/25 Tamsulosin Hcl (Flomax) 0.4 Mg Cap, 0.4 MG PO DAILY for 15 Days, #15 CAP Prov:BRAYAN LEON MD 12/01/24 Ciprofloxacin Hcl (Cipro) 500 Mg Tab, 1 TAB PO BID for 10 Days, #20 TAB Prov:BRAYAN LEON MD 12/01/24 Current Medications Current Medications Medications (Trade) Dose Ordered Sig/Delmis Route PRN Reason Start Time Stop Time Status Last Admin Sodium Chloride 1,000 ml @ 100 mls/hr Q10H IV 01/14/25 02:00 01/14/25 11:59 Docusate Sodium (Colace Capsule) 100 mg BIDPRN PRN PO FOR CONSTIPATION 01/14/25 02:00 Acetaminophen (Tylenol Tablet) 650 mg Q6HP PRN PO PAIN SCALE 1-3 OR TEMP>100.4 01/14/25 02:00 Acetaminophen/ Hydrocodone Bitart ([place] 5/325MG Tab) 1 tab Q4HP PRN PO MODERATE PAIN (4-6 PAIN SCALE) 01/14/25 02:00 01/14/25 06:10 Ondansetron HCl (Zofran) 4 mg Q4HP PRN IV NAUSEA / VOMITING 01/14/25 02:00 01/14/25 05:03 Morphine Sulfate 2 mg Q4HPRN PRN IV SEVERE PAIN (7-10 PAIN SCALE) 01/14/25 02:00 Nitroglycerin (Ntrostat Sublingual) 0.4 mg Q5MINP PRN SL FOR CHEST PAIN 01/14/25 02:00 Morphine Sulfate 2 mg Q30M PRN IV FOR CHEST PAIN 01/14/25 02:00 Ceftriaxone Sodium 50 ml @ 100 mls/hr DAILY@2100 IV 01/14/25 21:00 Tamsulosin HCl (Flomax) 0.4 mg DAILY PO 01/14/25 10:00 Hydralazine HCl (Apresoline Injection) 10 mg Q4HP PRN IV SBP > 160 01/14/25 02:00 01/14/25 09:15 Metoprolol Tartrate (Lopressor Tablet) 25 mg BID PO 01/14/25 10:00 Review of Systems As described in the HPI Vital Signs Vital Signs Date Time Temp Pulse Resp B/P (MAP) Pulse Ox O2 Delivery O2 Flow Rate FiO2 01/14/25 09:15 167/117 01/14/25 08:51 98.0 114 18 96 98.0 01/14/25 04:57 Room Air* 0 21 Physical Exam Examination General Appearance: Alert, Oriented X3, Cooperative, No acute distress, Harper's catheter present HEENT: EOMI Respiratory: Clear to auscultation, Normal air movement Cardiovascular: Regular rate, Normal S1, Normal S2 Abdominal: Normal bowel sounds Extremities: No cyanosis, No edema, Normal pulses, No tenderness/swelling Skin: No rashes, No breakdown Neuro: Normal speech and tone Labs/Diagnostic Data Labs Test 01/14/25 05:02 01/13/25 23:13 01/13/25 19:09 01/13/25 18:25 Range/Units White Blood Count 10.5 4.4-10.8 10^3/uL Red Blood Count 4.70 4.5-5.90 10^6/uL Hemoglobin 13.3 L 13.5-17.5 g/dL Hematocrit 39.2 L 41.0-53.0 % Mean Corpuscular Volume 83.5 80.0-100.0 fL Mean Corpuscular Hemoglobin 28.3 28.0-32.0 pg Mean Corpuscular Hemoglobin Concent 33.9 32.0-36.0 g/dL Red Cell Distribution Width 14.9 H 11.8-14.3 % Platelet Count 260 140-450 10^3/uL Mean Platelet Volume 7.4 6.9-10.8 fL Neutrophils (%) (Auto) 87.5 H 37.0-80.0 % Lymphocytes (%) (Auto) 10.4 10.0-50.0 % Monocytes (%) (Auto) 1.3 0.0-12.0 % Eosinophils (%) (Auto) 0.5 0.0-7.0 % Basophils (%) (Auto) 0.3 0.0-2.0 % Neutrophils # (Auto) 9.2 H 1.6-8.6 10 ^3/uL Lymphocytes # (Auto) 1.1 0.4-5.4 10 ^3/uL Monocytes # (Auto) 0.1 0-1.3 10 ^3/uL Eosinophils # (Auto) 0 0-0.8 10 ^3/uL Basophils # (Auto) 0 0-0.2 10 ^3/uL Nucleated Red Blood Cells 0.1 % POC Glucose 239 H 70-106 mg/dl Lactic Acid Level 1.2 0.4-2.0 mmol/L Total Bilirubin 0.5 0.2-1.0 mg/dL Aspartate Amino Transferase (AST) 18 13-40 U/L Alanine Aminotransferase (ALT) 20 7-40 U/L Alkaline Phosphatase 125 H 46-116 U/L Total Protein 7.1 5.7-8.2 g/dL Albumin 4.5 3.2-4.8 g/dL Lipase 65 H 12-53 U/L Test 01/13/25 18:00 Range/Units Urine Color Colorless Yellow Urine Clarity Clear Clear Urine pH 6.5 5.0-9.0 Urine Specific [place] 1.008 1.001-1.035 Urine Protein Negative Negative Urine Ketones Negative Negative Urine Blood Trace H Negative /uL Urine Nitrite Negative Negative Urine Bilirubin Negative Negative Urine Urobilinogen Normal Negative mg/dL Urine Leukocyte Esterase Negative Negative /uL Urine RBC 1 0 - 3 /hpf Urine Microscopic WBC 2 0-3 /HPF Urine Squamous Epithelial Cells None seen <5 /hpf Urine Bacteria None seen None Seen /hpf Urine Glucose Normal Normal mg/dL Assessment Assessment/plan # acute kidney injury on ?CKD due to obstructive uropathy due to enlarged BPH causing bladder outlet obstruction, ?Component of hemodynamic instability On Harper's catheter Input output last 24 hours 354/500 with a net of -146 mL 1900 mL of urine produced since morning BUN improved from 107 to 84 Creatinine improved from 12.99 to 12.43 # hypokalemia, resolved # anion gap acidosis likely due to starvation ketosis Elevated beta hydroxybutyric levels, 2.897 # intractable vomiting likely due to uremia # enlarged prostate, bladder outlet obstruction status post Harper's catheter # Hypertension Plan/Recommendation Plan Monitor kidney function including electrolytes Strict input output Continue with Harper's catheter Urology consult Urine studies ordered, awaiting results will order labs including magnesium, phosphate, vitamin-D, PTH levels IV hydralazine 25 mg q.4 PRN ordered for hypertension Patient was initially started on normal saline at 125 cc/hour, we will switch to D5 NS at 125 cc/hour because of starvation ketosis likely because of recurrent vomiting We will order sodium bicarb oral tablets Closely monitor kidney function Patient was counseled in detail on possible need for dialysis if kidney function does not improve Case discussion with Dr Pascal Addendum Patient seen and examined, plan discussed with resident. Agree with above, we will follow closely Plan discussed with: Patient, Other GRZEGORZ CAMPOS RESIDENT Jan 14, 2025 09:30 DOROTHEA PASCAL MD Jan 14, 2025 15:49
[2025-01-14 09:40] LABS: Carbon Dioxide 18 mmol/L (20-31); Glucose 117 mg/dL (74-106)
[2025-01-14 09:41] LABS: Blood Urea Nitrogen 84 mg/dL (9-23)
[2025-01-14] MEDS: METOPROLOL TARTRATE 25 MG TAB PO SCH (10:08)
[2025-01-14] MEDS: TAMSULOSIN HYDROCHLORIDE 0.4 MG CAP PO SCH (10:08)
[2025-01-14 11:37] VITALS: PULSE 100; RESP 18; O2SAT 96
[2025-01-14] MEDS ORDERED: hydrALAZINE HCL 20 MG/ML VL IV PRN (12:45)
[2025-01-14 13:00] VITALS: BP 159/115; PULSE 129; RESP 19; TEMP 98.3; O2SAT 98
[2025-01-14] MEDS: D5W/SOD CHLO 0.9% 1,000 ML IV SCH (15:15)
[2025-01-14 16:24] LABS: Magnesium 2.3 mg/dL (1.6-2.6)
[2025-01-14 17:21] VITALS: BP 146/98; PULSE 109; RESP 19; TEMP 98.3; O2SAT 97
[2025-01-14] MEDS: SODIUM BICARBONATE 650 MG TAB PO SCH (20:36)
[2025-01-14] MEDS: MORPHINE SULFATE INJ 2 MG/ml SYRG IV PRN (20:39)
[2025-01-15] VITALS (7 sets, daily range): BP systolic 134–167; BP diastolic 71–108; PULSE 64–109; RESP 12–18; TEMP 97.6–99.1; O2SAT 97–100
[2025-01-15 05:58] LABS: Hematocrit 36.6 % (41.0-53.0); Hemoglobin 12.3 g/dL (13.5-17.5); Mean Corpuscular Hemoglobin 27.4 pg (28.0-32.0); Mean Corpuscular Volume 81.4 fL (80.0-100.0); Nucleated Red Blood Cells % 0.0 %
[2025-01-15 06:25] LABS: Anion Gap 13 (5-15); Calcium 9.2 mg/dL (8.7-10.4); Carbon Dioxide 23 mmol/L (20-31); Chloride 104 mmol/L (98-107); Magnesium 1.9 mg/dL (1.6-2.6); Sodium 140 mmol/L (136-145)
[2025-01-15 06:31] LABS: BUN/Creatinine Ratio 8.8 (10.0-20.0)
[2025-01-15 06:39] LABS: Glucose 153 mg/dL (74-106); Potassium 5.2 mmol/L (3.5-5.1)
[2025-01-15 06:41] LABS: Blood Urea Nitrogen 87 mg/dL (9-23)
--- NOTE | 2025-01-15 10:30 | DVHINCON2 ---
Date of service: Jan 15, 2025 Referring Physician hospitalist Reason for Consultation urinary retention, BPH History of Present Illness History Source: Patient, MD Notes Exam Limitations: No limitations HPI 69 yo male known to urology for urinary retention. He presented as a new pt to [facility] 11/22/[address], cary was removed in office and per chart review he was able to void .He was scheduled for cystoscopy 01/17/25. He is now admitted with MADHURI and urinary retention. His CT showed severe bilateral hydronephrosis 2/2 VALENTE and massive prostatomegaly. Creatinine on arrival was 12 now 9. Home Meds Active Scripts Amlodipine Besylate (Amlodipine Besylate) 5 Mg Tab, 1 TAB PO DAILY, #90 TAB 3 Refills Prov:CAMRON ASHLEY MD 01/13/25 Ondansetron HCl (Ondansetron Hydrochloride) 8 Mg Tab, 8 MG PO Q6HP PRN, #30 TAB Prov:CAMRON ASHLEY MD 01/13/25 Cefdinir (Cefdinir) 300 Mg Cap, 1 CAP PO BID for 10 Days, #20 CAP Prov:CAMRON ASHLEY MD 01/13/25 Tamsulosin Hcl (Flomax) 0.4 Mg Cap, 0.4 MG PO DAILY for 15 Days, #15 CAP Prov:BRAYAN LEON MD 12/01/24 Ciprofloxacin Hcl (Cipro) 500 Mg Tab, 1 TAB PO BID for 10 Days, #20 TAB Prov:BRAYAN LEON MD 12/01/24 Review of Systems Gastrointestinal: Nausea, Abdominal Pain Genitourinary: Retention H&P Exam Vital Signs Vital Signs Date Time Temp Pulse Resp B/P (MAP) Pulse Ox O2 Delivery O2 Flow Rate FiO2 01/15/25 09:36 108 127/102 01/15/25 09:00 97.9 16 98 97.9 01/14/25 11:37 Room Air* 0 21 Labs/Xrays [address] [address] Ph: [phone] DIAGNOSTIC IMAGING Diagnostic Imaging Report : [id number] Signed PATIENT: KENNETH JEFFERY ACCT: [id number] UNIT: [id number] : 1955 LOC: ER ROOM / BED: / AGE / SEX: 69 / M ADM STATUS: REG ER SERVICE [id number] ORDERING PHYSICIAN: CAMRON ASHLEY MD PROCEDURE(s): ABPL - CT AB PEL WO CON-NO ORAL OR IV REASON: abd pain / renal failure ORDER NUMBER(s): [id number], ACCESSION NUMBER(s): [id number] COMPUTERIZED TOMOGRAPHY ABDOMEN AND PELVIS WITHOUT CONTRAST REASON FOR EXAM: abd pain / renal failure COMPARISON: None TECHNIQUE: Spiral scans were acquired from the diaphragm to the symphysis pubis without intravenous contrast administration. 2-D coronal and sagittal reformatted images were provided. Radiation optimization: All CT scans at this facility use at least one of these dose optimization techniques: Automated exposure control mA and/or kV adjustment per patient size (includes targeted exams where dose is matched to clinical indication) or iterative reconstruction. RADIATION DOSE: CTDI: 6.93 mGy DLP: 361.43 mGy-cm FINDINGS: The visualized lung bases are clear. There is no pleural effusion. There is no pericardial effusion. The spleen is not enlarged. The liver is normal in size and contour. Evaluation of the abdominal organs is suboptimal in the absence of intravenous contrast. No calcified gallstone is identified. There is no pericholecystic edema. Unenhanced appearance of the pancreas is grossly unremarkable. The adrenal glands are normal. The kidneys are similar in size. There is a simple appearing 2.4 cm exophytic cyst of the superior pole of the left kidney which requires no dedicated follow-up. There is severe bilateral hydroureteronephrosis. No renal, ureteral, or bladder calculus is identified. The bladder appears thick-walled and trabeculated consistent with chronic outlet obstruction. The prostate is massively enlarged. There is partial visualization of right scrotal hydrocele. The colonic stool burden is small. The appendix is not seen. There is no inflammatory change about the cecum to suggest acute appendicitis. There is no distention of the small bowel. No free fluid is identified in the abdomen or pelvis. There is no pathologic lymphadenopathy by size criteria. No acute osseous abnormality is identified. There are old, healed right-sided rib fractures. There are degenerative changes in the lumbar spine. There is grade 1 anterolisthesis of L4 on L5. IMPRESSION: Massive prostatomegaly with evidence of urinary bladder chronic outlet obstruction. Correlate clinically for possible cystitis. Severe bilateral hydroureteronephrosis likely secondary to bladder outlet obstruction by the prostate. ATED BY: JULIO FIGUEROA MD DICTATED DATE/TIME: 01/13/251928 SIGNED BY: JULIO FIGUEROA MD SIGNED DATE/TIME: 01/13/251928 CC: [place] [id number] Ph: [phone] DIAGNOSTIC IMAGING Diagnostic Imaging Report : [id number] Signed PATIENT: KENNETH JEFFERY ACCT: [id number] UNIT: [id number] : 1955 LOC: OVERFLOW ROOM / BED: [address] [place] [address] AGE / SEX: 69 / M ADM STATUS: ADM IN SERVICE 5 ORDERING PHYSICIAN: SHANIQUA ALVARES NP PROCEDURE(s): KIDUS - KIDNEY REASON: acute renal failure ORDER NUMBER(s): [id number], ACCESSION NUMBER(s): [id number] RENAL ULTRASOUND History: acute renal failure Comparison: None Technique: Multiple real-time sonographic images of the kidney and bladder were obtained in conjunction with Doppler imaging. Findings: The right kidney measures 10.4 cm and demonstrates no evidence of hydroneph rosis, perinephric fluid collection, or shadowing stone. The left kidney measures 10.1 cm and demonstrates no evidence of hydronephrosis, perinephric fluid collection, or shadowing stone. Urinary bladder: Prevoid urinary bladder volume is 221 mL. Impression: No hydronephrosis. ATED BY: KATLYN TRAN MD DICTATED DATE/TIME: 01/14/25735 SIGNED BY: KATLYN TRAN MD SIGNED DATE/TIME: 01/14/25735 CC: Labs Test 01/15/25 05:18 01/14/25 15:57 01/14/25 05:02 01/13/25 23:13 Range/Units White Blood Count 8.9 4.4-10.8 10^3/uL Red Blood Count 4.49 L 4.5-5.90 10^6/uL Hemoglobin 12.3 L 13.5-17.5 g/dL Hematocrit 36.6 L 41.0-53.0 % Mean Corpuscular Volume 81.4 80.0-100.0 fL Mean Corpuscular Hemoglobin 27.4 L 28.0-32.0 pg Mean Corpuscular Hemoglobin Concent 33.6 32.0-36.0 g/dL Red Cell Distribution Width 15.6 H 11.8-14.3 % Platelet Count 243 140-450 10^3/uL Mean Platelet Volume 7.3 6.9-10.8 fL Neutrophils (%) (Auto) 84.1 H 37.0-80.0 % Lymphocytes (%) (Auto) 9.6 L 10.0-50.0 % Monocytes (%) (Auto) 5.6 0.0-12.0 % Eosinophils (%) (Auto) 0.5 0.0-7.0 % Basophils (%) (Auto) 0.2 0.0-2.0 % Neutrophils # (Auto) 7.4 1.6-8.6 10 ^3/uL Lymphocytes # (Auto) 0.9 0.4-5.4 10 ^3/uL Monocytes # (Auto) 0.5 0-1.3 10 ^3/uL Eosinophils # (Auto) 0 0-0.8 10 ^3/uL Basophils # (Auto) 0 0-0.2 10 ^3/uL Nucleated Red Blood Cells 0.0 % Sodium Level 140 136-145 mmol/L Potassium Level 5.2 H 3.5-5.1 mmol/L Chloride Level 104 98-107 mmol/L Carbon Dioxide Level 23 20-31 mmol/L Anion Gap 13 5-15 Blood Urea Nitrogen 87 *H 9-23 mg/dL Creatinine 9.87 H 0.700-1.30 mg/dL Glomerular Filtration Rate Calc 5 >90 mL/min BUN/Creatinine Ratio 8.8 L 10.0-20.0 Serum Glucose 153 H 74-106 mg/dL Calcium Level 9.2 8.7-10.4 mg/dL Magnesium Level 1.9 1.6-2.6 mg/dL Vitamin D 25-Hydroxy 63.1 30.0-100 ng/mL Phosphorus Level 8.3 H 2.4-5.1 mg/dL Beta-Hydroxybutyric Acid 2.897 H < 0.4 mmol/L Parathyroid Hormone (Intact) 296.2 H 18.4-80.1 pg/mL POC Glucose 239 H 70-106 mg/dl Test 01/13/25 19:09 01/13/25 18:25 01/13/25 18:00 Range/Units Lactic Acid Level 1.2 0.4-2.0 mmol/L Total Bilirubin 0.5 0.2-1.0 mg/dL Aspartate Amino Transferase (AST) 18 13-40 U/L Alanine Aminotransferase (ALT) 20 7-40 U/L Alkaline Phosphatase 125 H 46-116 U/L Total Protein 7.1 5.7-8.2 g/dL Albumin 4.5 3.2-4.8 g/dL Lipase 65 H 12-53 U/L Urine Color Colorless Yellow Urine Clarity Clear Clear Urine pH 6.5 5.0-9.0 Urine Specific [place] 1.008 1.001-1.035 Urine Protein Negative Negative Urine Ketones Negative Negative Urine Blood Trace H Negative /uL Urine Nitrite Negative Negative Urine Bilirubin Negative Negative Urine Urobilinogen Normal Negative mg/dL Urine Leukocyte Esterase Negative Negative /uL Urine RBC 1 0 - 3 /hpf Urine Microscopic WBC 2 0-3 /HPF Urine Squamous Epithelial Cells None seen <5 /hpf Urine Bacteria None seen None Seen /hpf Urine Glucose Normal Normal mg/dL Microbiology Date/Time Source Procedure Growth Status 01/13/25 19:03 Blood Blood Culture - Preliminary NO GROWTH AFTER 24 HOURS OF INCUBATION. Resulted Assessment/Plan Problem List: (1) Acute retention of urine (2) Hydronephrosis (3) BPH (benign prostatic hyperplasia) (4) UTI (urinary tract infection) Plan maintain cary to gravity monitor renal function outpt aquablation after creatinine normalizes. Plan discussed with: Patient, Other ANTHONY OSHEA NP Jan 15, 2025 10:30
[2025-01-15] MEDS: SODIUM ZIRCONIUM CYCL 10 GM PAK PO ONE (11:23)
--- NOTE | 2025-01-15 18:01 | DVHPN2 ---
Subjective Overnight events noted. Patient does have a Harper catheter placement, BUN creatinine mild improvement. Changes from previous H/P or p: No Changes Eyes: No Pain, No Vision change, No Conjunctivae inflammation, No Eyelid inflammation, No Other, No Redness ENT: No Ear pain, No Ear discharge, No Nose pain, No Nose discharge, No Nose congestion, No Mouth pain, No Mouth swelling, No Throat pain, No Throat swelling, No Other Cardiovascular: No Chest Pain, No Palpitations, No Orthopnea, No Paroxysmal Noc. Dyspnea, No Edema, No Lt Headedness, No Other Respiratory: No Cough, No Dry, No Shortness of breath, No SOB with excertion, No Wheezing, No Hemoptysis, No Pleuritic Pain, No Sputum, No Other Gastrointestinal: No Nausea, No Vomiting, No Abdominal Pain, No Diarrhea, No Constipation, No Melena, No Hematochezia, No Other Genitourinary: Dysuria, Frequency; No Incontinence, No Hematuria; Retention; No Other Musculoskeletal: No other, No neck pain, No shoulder pain, No arm pain, No back pain, No hand pain, No leg pain, No foot pain Skin: No Rash, No Lesions, No Jaundice, No Bruising, No Other Objective Vitals Vital Signs Date Time Temp Pulse Resp B/P (MAP) Pulse Ox O2 Delivery O2 Flow Rate FiO2 01/15/25 13:00 98.3 109 17 147/108 (121) 98 98.3 01/14/25 11:37 Room Air* 0 21 Intake/Output Intake and Output 01/15/25 07:00 Output Total 6050 ml Balance -6050 ml Output Urine Total 6050 ml Exam HEENT pupils are reactive Neck is supple CV is S1-S2 regular rate and rhythm Respiratory diminished breath sound bases GI posterior bowel sound Extremity no edema 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 Medications Current Medications Medications Dose Ordered Sig/Delmis Route Start Time Stop Time Status Last Admin Dose Admin Docusate Sodium 100 mg BIDPRN PRN PO 01/14/25 02:00 Acetaminophen 650 mg Q6HP PRN PO 01/14/25 02:00 Acetaminophen/ Hydrocodone Bitart 1 tab Q4HP PRN PO 01/14/25 02:00 01/14/25 06:10 1 TAB Ondansetron HCl 4 mg Q4HP PRN IV 01/14/25 02:00 01/14/25 11:21 4 MG Morphine Sulfate 2 mg Q4HPRN PRN IV 01/14/25 02:00 01/15/25 03:50 2 MG Nitroglycerin 0.4 mg Q5MINP PRN SL 01/14/25 02:00 Morphine Sulfate 2 mg Q30M PRN IV 01/14/25 02:00 Ceftriaxone Sodium 50 ml @ 100 mls/hr DAILY@2100 IV 01/14/25 21:00 01/14/25 20:35 100 MLS/HR Tamsulosin HCl 0.4 mg DAILY PO 01/14/25 10:00 01/15/25 08:39 0.4 MG Metoprolol Tartrate 25 mg BID PO 01/14/25 10:00 01/15/25 08:39 25 MG Hydralazine HCl 25 mg Q4HP PRN IV 01/14/25 12:45 Sodium Bicarbonate 650 mg TID PO 01/14/25 22:00 01/15/25 08:39 650 MG Dextrose/Sodium Chloride 1,000 ml @ 125 mls/hr Q8H IV 01/14/25 15:15 01/15/25 09:23 125 MLS/HR Laboratory Results Laboratory Tests 01/15/25 05:18 Chemistry Test 01/15/25 05:18 Calcium Level 9.2 mg/dL (8.7-10.4) Magnesium Level 1.9 mg/dL (1.6-2.6) Urinalysis Test 01/13/25 18:00 Urine Color Colorless (Yellow) Urine Clarity Clear (Clear) Urine pH 6.5 (5.0-9.0) Urine Specific [place] 1.008 (1.001-1.035) Urine Protein Negative (Negative) Urine Ketones Negative (Negative) Urine Blood Trace /uL (Negative) H Urine Nitrite Negative (Negative) Urine Bilirubin Negative (Negative) Urine Urobilinogen Normal mg/dL (Negative) Urine Leukocyte Esterase Negative /uL (Negative) Urine RBC 1 /hpf (0 - 3) Urine Microscopic WBC 2 /HPF (0-3) Urine Squamous Epithelial Cells None seen /hpf (<5) Urine Bacteria None seen /hpf (None Seen) Urine Glucose Normal mg/dL (Normal) Microbiology Microbiology Date/Time Source Procedure Growth Status 01/13/25 19:03 Blood Blood Culture - Preliminary NO GROWTH AFTER 24 HOURS OF INCUBATION. Resulted 01/13/25 18:00 Voided Urine Urine Culture - Preliminary Resulted Assessment/Plan Assessment/Plan 69-year-old male with a known history of BPH, hypertension who initially admitted to the hospital with the abdominal discomfort found to have 1. Acute urinary retention status post Harper catheter placement 2. Hyperkalemia 3. Acute kidney injury 4. 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 Hypertension -repeat BNP, nephrology/urology follow up. Plan discussed with: Patient My Orders Orders - JAHAIRA MCKINNEY MD Procedure Category Date Status Time Basic Metabolic Panel LAB 01/16/25 Verified 04:00 Date of Service: Jan 15, 2025 Billing Provider: JAHAIRA MCKINNEY MD Common Visit Codes: [id number] INP/OBS CARE(MOD), NOT BILLABLE JAHAIRA MCKINNEY MD Jan 15, 2025 18:01
--- NOTE | 2025-01-15 19:16 | DVHPN2 ---
Progress Note Date Seen: Jan 15, 2025 Resident Creating Document: GRZEGORZ CAMPOS RESIDENT Medical Necessity Reason Pt with a Central, PICC or Fol: No Subjective Review of Systems History of Present Illness 69-year-old male with past medical history of hypertension presented with urinary discomfort two weeks. Patient went to PCP was treated for UTI but did not complete the antibiotics as he was having GI side effects. On presenting to the ER, patient was found to be hypokalemic, was treated and was found to have deranged kidney function. She also mentioned associated vomiting episodes that started 2-3 days ago. Patient mentioned that two months ago he had similar admission in [facility] for bladder outlet obstruction where he has kidney was 5% functioning and after Harper's catheter placement improved to 50% and was discharged on Harper's catheter. [facility] unknown name of dr after which his Harper's catheter was removed. Nephrology was consulted for MADHURI Patient had CT abdomen done which revealed massive prostate causing bladder outlet obstruction and possible hydronephrosis. Renal ultrasound done showed no hydronephrosis. Patient was initially started on IV fluids and Harper's catheter. Patient has been patient seen and examined at bedside Patient had multiple episodes of vomiting since the morning Mentioned mild pain in pelvic region Past medical history hypertension Medication history Amlodipine Ondansetron Flomax Past surgical history No recent surgery Social history Patient quit smoking 20 years ago, was smoking for 10 years Denied alcohol, marijuana or any other drug intake Family history Nonsignificant Interval Events 01/15/25 pt mentioned improvement in his symptoms of Nausea and vomiting. tolerating diet Objective vital signs Vital Sign Date Time Temp Pulse Resp B/P (MAP) Pulse Ox O2 Delivery O2 Flow Rate FiO2 01/15/25 18:25 97.9 101 17 142/100 (114) 100 97.9 01/15/25 18:20 Room Air* 0 21 Total Intake and Output 01/14/25 01/14/25 01/15/25 15:00 23:00 07:00 Output Total 1900 ml 1550 ml 2600 ml Balance -1900 ml -1550 ml -2600 ml medications Current Medications Medications Dose Ordered Sig/Delmis Route Start Time Stop Time Status Last Admin Dose Admin Docusate Sodium 100 mg BIDPRN PRN PO 01/14/25 02:00 Acetaminophen 650 mg Q6HP PRN PO 01/14/25 02:00 Acetaminophen/ Hydrocodone Bitart 1 tab Q4HP PRN PO 01/14/25 02:00 01/14/25 06:10 1 TAB Ondansetron HCl 4 mg Q4HP PRN IV 01/14/25 02:00 01/14/25 11:21 4 MG Morphine Sulfate 2 mg Q4HPRN PRN IV 01/14/25 02:00 01/15/25 03:50 2 MG Nitroglycerin 0.4 mg Q5MINP PRN SL 01/14/25 02:00 Morphine Sulfate 2 mg Q30M PRN IV 01/14/25 02:00 Ceftriaxone Sodium 50 ml @ 100 mls/hr DAILY@2100 IV 01/14/25 21:00 01/14/25 20:35 100 MLS/HR Tamsulosin HCl 0.4 mg DAILY PO 01/14/25 10:00 01/15/25 08:39 0.4 MG Metoprolol Tartrate 25 mg BID PO 01/14/25 10:00 01/15/25 08:39 25 MG Hydralazine HCl 25 mg Q4HP PRN IV 01/14/25 12:45 Sodium Bicarbonate 650 mg TID PO 01/14/25 22:00 01/15/25 08:39 650 MG Dextrose/Sodium Chloride 1,000 ml @ 125 mls/hr Q8H IV 01/14/25 15:15 01/15/25 09:23 125 MLS/HR Examination Examination General Appearance: Alert, Oriented X3, Cooperative, No acute distress, Harper's catheter present HEENT: EOMI Respiratory: Clear to auscultation, Normal air movement Cardiovascular: Regular rate, Normal S1, Normal S2 Abdominal: Normal bowel sounds Extremities: No cyanosis, No edema, Normal pulses, No tenderness/swelling Skin: No rashes, No breakdown Neuro: Normal speech and ton laboratory and microbiology Laboratory Tests 01/15/25 05:18 Test 01/15/25 05:18 Range/Units Serum Glucose 153 H 74-106 mg/dL Microbiology Date/Time Source Procedure Growth Status 01/13/25 19:03 Blood Blood Culture - Preliminary NO GROWTH AFTER 24 HOURS OF INCUBATION. Resulted 01/13/25 18:00 Voided Urine Urine Culture - Preliminary Resulted Labs and/or images reviewed: Labs reviewed by me, Image(s) reviewed by me Problem List/Assessment/Plan Problem List/Assessment/Plan Assessment/plan # Acute Kidney Injury on ?CKD due to obstructive uropathy due to enlarged BPH causing bladder outlet obstruction, ?Component of hemodynamic instability On Harper's catheter Urine output last 24 hours is - 6Lt BUN increased from 84 to 87 Creatinine improved from 12.43 to 9.87 # Hyperkalemia # hypokalemia, resolved # Hyperphosphatemia # Secondary Hyperparathyroidism # anion gap acidosis likely due to starvation ketosis Elevated beta hydroxybutyric levels, 2.897 # intractable vomiting likely due to uremia # enlarged prostate, bladder outlet obstruction status post Harper's catheter # Hypertension Plan Monitor kidney function including electrolytes Strict input output Continue with Harper's catheter Urology consult Urine studies ordered, awaiting results magnesium, phosphate, vitamin-D, PTH levels IV hydralazine 25 mg q.4 PRN ordered for hypertension Switch to normal saline at 125 cc/hour from D5 NS at 125 cc/hour Continue sodium bicarb oral tablets ordered one time dose of lokelma 10mg tablet low k+ diet Closely monitor kidney function Patient was counseled in detail on possible need for dialysis if kidney function does not improve. Case discussion with Dr Duckworth Plan discussed with: Patient, Other My Orders My Orders Orders - GRZEGORZ CAMPOS Procedure Category Date Status Time NS [facility] 01/15/25 Verified 19:15 GRZEGORZ CAMPOS RESIDENT Jan 15, 2025 19:16
[2025-01-15] MEDS: SODIUM CHLORIDE 0.9% 1,000 ML IV SCH (21:40)
[2025-01-16 01:00] VITALS: BP 136/101; PULSE 90; RESP 17; TEMP 98.7; O2SAT 98
[2025-01-16 05:00] VITALS: BP 112/81; PULSE 77; RESP 19; TEMP 97.5; O2SAT 95
[2025-01-16 06:29] LABS: Hematocrit 36.8 % (41.0-53.0); Hemoglobin 12.7 g/dL (13.5-17.5); Mean Corpuscular Hemoglobin 28.1 pg (28.0-32.0); Mean Corpuscular Volume 81.5 fL (80.0-100.0); Nucleated Red Blood Cells % 0.0 %
[2025-01-16 06:34] LABS: Anion Gap 12 (5-15); Carbon Dioxide 26 mmol/L (20-31); Chloride 106 mmol/L (98-107); Potassium 4.9 mmol/L (3.5-5.1); Sodium 144 mmol/L (136-145)
[2025-01-16 06:35] LABS: Calcium 9.0 mg/dL (8.7-10.4)
[2025-01-16 06:40] LABS: BUN/Creatinine Ratio 8.9 (10.0-20.0); Glucose 92 mg/dL (74-106); Magnesium 1.6 mg/dL (1.6-2.6)
[2025-01-16 06:54] LABS: Blood Urea Nitrogen 64 mg/dL (9-23)
[2025-01-16 08:00] VITALS: PULSE 100
[2025-01-16] MEDS: MAGNESIUM OXIDE 400 MG TAB PO ONE (09:18)
[2025-01-16 09:30] VITALS: BP 117/87; PULSE 102; RESP 14; TEMP 97.4; O2SAT 98
--- NOTE | 2025-01-16 09:49 | DVHPN2 ---
Progress Note Date Seen: Jan 16, 2025 Resident Creating Document: GRZEGORZ CAMPOS RESIDENT Medical Necessity Reason Pt with a Central, PICC or Fol: No Subjective Review of Systems 69-year-old male with past medical history of hypertension presented with urinary discomfort two weeks. Patient went to PCP was treated for UTI but did not complete the antibiotics as he was having GI side effects. On presenting to the ER, patient was found to be hypokalemic, was treated and was found to have deranged kidney function. She also mentioned associated vomiting episodes that started 2-3 days ago. Patient mentioned that two months ago he had similar admission in [facility] for bladder outlet obstruction where he has kidney was 5% functioning and after Harper's catheter placement improved to 50% and was discharged on Harper's catheter. Patient follow up with Urology in [facility] unknown name of after which his Harper's catheter was removed. Nephrology was consulted for MADHURI Patient had CT abdomen done which revealed massive prostate causing bladder outlet obstruction and possible hydronephrosis. Renal ultrasound done showed no hydronephrosis. Patient was initially started on IV fluids and Harper's catheter. Patient has been patient seen and examined at bedside Patient had multiple episodes of vomiting since the morning Mentioned mild pain in pelvic region Past medical history hypertension Medication history Amlodipine Ondansetron Flomax Past surgical history No recent surgery Social history Patient quit smoking 20 years ago, was smoking for 10 years Denied alcohol, marijuana or any other drug intake Family history Nonsignificant Interval Events 01/16/25 pt mentioned improvement in his symptoms of Nausea and vomiting. tolerating diet Objective vital signs Vital Sign Date Time Temp Pulse Resp B/P (MAP) Pulse Ox O2 Delivery O2 Flow Rate FiO2 01/16/25 09:19 90 136/98 01/16/25 05:00 97.5 19 95 97.5 01/15/25 20:00 Room Air* 0 21 Total Intake and Output 01/15/25 01/15/25 01/16/25 15:00 23:00 07:00 Intake Total 600 ml 600 ml Output Total 1250 ml 2200 ml Balance -650 ml -1600 ml medications Current Medications Medications Dose Ordered Sig/Delmis Route Start Time Stop Time Status Last Admin Dose Admin Docusate Sodium 100 mg BIDPRN PRN PO 01/14/25 02:00 Acetaminophen 650 mg Q6HP PRN PO 01/14/25 02:00 Acetaminophen/ Hydrocodone Bitart 1 tab Q4HP PRN PO 01/14/25 02:00 01/14/25 06:10 1 TAB Ondansetron HCl 4 mg Q4HP PRN IV 01/14/25 02:00 01/14/25 11:21 4 MG Morphine Sulfate 2 mg Q4HPRN PRN IV 01/14/25 02:00 01/16/25 01:13 2 MG Nitroglycerin 0.4 mg Q5MINP PRN SL 01/14/25 02:00 Morphine Sulfate 2 mg Q30M PRN IV 01/14/25 02:00 Ceftriaxone Sodium 50 ml @ 100 mls/hr DAILY@2100 IV 01/14/25 21:00 01/15/25 21:39 100 MLS/HR Tamsulosin HCl 0.4 mg DAILY PO 01/14/25 10:00 01/16/25 09:18 0.4 MG Metoprolol Tartrate 25 mg BID PO 01/14/25 10:00 01/16/25 09:19 25 MG Hydralazine HCl 25 mg Q4HP PRN IV 01/14/25 12:45 Sodium Bicarbonate 650 mg TID PO 01/14/25 22:00 01/16/25 05:42 650 MG Sodium Chloride 1,000 ml @ 125 mls/hr Q8H IV 01/15/25 19:15 01/16/25 05:42 125 MLS/HR Examination Examination General Appearance: Alert, Oriented X3, Cooperative, No acute distress, Harper's catheter present HEENT: EOMI Respiratory: Clear to auscultation, Normal air movement Cardiovascular: Regular rate, Normal S1, Normal S2 Abdominal: Normal bowel sounds Extremities: No cyanosis, No edema, Normal pulses, No tenderness/swelling Skin: No rashes, No breakdown Neuro: Normal speech and tone laboratory and microbiology Laboratory Tests 01/16/25 06:05 Test 01/16/25 06:05 Range/Units Serum Glucose 92 74-106 mg/dL Microbiology Date/Time Source Procedure Growth Status 01/13/25 19:03 Blood Blood Culture - Preliminary NO GROWTH AFTER 48 HOURS OF INCUBATION. Resulted 01/13/25 18:00 Voided Urine Urine Culture - Preliminary Resulted Labs and/or images reviewed: Labs reviewed by me, Image(s) reviewed by me Problem List/Assessment/Plan Problem List/Assessment/Plan Assessment/plan # Acute Kidney Injury on ?CKD due to obstructive uropathy due to enlarged BPH causing bladder outlet obstruction, ?Component of hemodynamic instability On Harper's catheter Urine output last 24 hours is 3.4 Lt BUN increased from 87 to 64 Creatinine improved from 9.87 to 7.22 # Hyperkalemia # hypokalemia, resolved # Hyperphosphatemia # Hypomagnesemia # Secondary Hyperparathyroidism # anion gap acidosis likely due to starvation ketosis Elevated beta hydroxybutyric levels, 2.897 # intractable vomiting likely due to uremia # enlarged prostate, bladder outlet obstruction status post Harper's catheter # Hypertension Plan Monitor kidney function including electrolytes Strict input output Continue with Harper's catheter Urology consult Urine studies ordered, awaiting results magnesium, phosphate, vitamin-D, PTH levels IV hydralazine 25 mg q.4 PRN ordered for hypertension Switch to normal saline at 125 cc/hour from D5 NS at 125 cc/hour Plenty of fluids intake on discharge Continue sodium bicarb oral tablets low k+ diet ordered magnesium oxide 400mg once Outpatient follow up with Nephrology and urology. Case discussion with Dr Duckworth Plan discussed with: Patient, Other My Orders My Orders Orders - GRZEGORZ CAMPOS RESIDENT Procedure Category Date Status Time Sodium Chloride 0.9% PHA 01/15/25 In Process 19:15 Renal Specific DIET 01/16/25 Transmitted Diet(Renal) Breakfast Urine Sodium LAB 01/16/25 Logged 08:09 Urine Protein LAB 01/16/25 Logged 08:09 Urine LAB 01/16/25 Logged Protein/Creatinine Urine Creatinine LAB 01/16/25 Logged 08:09 GRZEGORZ CAMPOS RESIDENT Jan 16, 2025 09:49
[2025-01-16 12:55] VITALS: BP 133/95; PULSE 88; RESP 18; TEMP 98; O2SAT 99
[2025-01-16] MEDS: DOCUSATE SOD 100 MG CAP PO PRN (14:26)
[2025-01-16 16:47] VITALS: BP 146/94; PULSE 93; RESP 20; TEMP 97.3; O2SAT 98
[2025-01-16] MEDS ORDERED: SODI650T PO (16:54)
[2025-01-16] MEDS ORDERED: MET25T PO (16:54)
--- NOTE | 2025-01-16 16:55 | DVHDS2 ---
Discharge Summary Date of Admission Jan 14, 2025 at 01:46 Date of Discharge: Jan 16, 2025 Labs/Diagnostic Data: Laboratory Results Test 01/16/25 06:05 01/14/25 15:57 01/14/25 05:02 01/13/25 23:13 White Blood Count 9.0 10^3/uL (4.4-10.8) Red Blood Count 4.51 10^6/uL (4.5-5.90) Hemoglobin 12.7 g/dL (13.5-17.5) Hematocrit 36.8 % (41.0-53.0) Mean Corpuscular Volume 81.5 fL (80.0-100.0) Mean Corpuscular Hemoglobin 28.1 pg (28.0-32.0) Mean Corpuscular Hemoglobin Concent 34.4 g/dL (32.0-36.0) Red Cell Distribution Width 15.3 % (11.8-14.3) Platelet Count 243 10^3/uL (140-450) Mean Platelet Volume 7.1 fL (6.9-10.8) Neutrophils (%) (Auto) 75.2 % (37.0-80.0) Lymphocytes (%) (Auto) 17.4 % (10.0-50.0) Monocytes (%) (Auto) 5.5 % (0.0-12.0) Eosinophils (%) (Auto) 1.6 % (0.0-7.0) Basophils (%) (Auto) 0.3 % (0.0-2.0) Neutrophils # (Auto) 6.8 10 ^3/uL (1.6-8.6) Lymphocytes # (Auto) 1.6 10 ^3/uL (0.4-5.4) Monocytes # (Auto) 0.5 10 ^3/uL (0-1.3) Eosinophils # (Auto) 0.1 10 ^3/uL (0-0.8) Basophils # (Auto) 0 10 ^3/uL (0-0.2) Nucleated Red Blood Cells 0.0 % Sodium Level 144 mmol/L (136-145) Potassium Level 4.9 mmol/L (3.5-5.1) Chloride Level 106 mmol/L (98-107) Carbon Dioxide Level 26 mmol/L (20-31) Anion Gap 12 (5-15) Blood Urea Nitrogen 64 mg/dL (9-23) Creatinine 7.22 mg/dL (0.700-1.30) Glomerular Filtration Rate Calc 8 mL/min (>90) BUN/Creatinine Ratio 8.9 (10.0-20.0) Serum Glucose 92 mg/dL (74-106) Calcium Level 9.0 mg/dL (8.7-10.4) Phosphorus Level 6.9 mg/dL (2.4-5.1) Magnesium Level 1.6 mg/dL (1.6-2.6) Vitamin D 25-Hydroxy 63.1 ng/mL (30.0-100) Beta-Hydroxybutyric Acid 2.897 mmol/L (< 0.4) Parathyroid Hormone (Intact) 296.2 pg/mL (18.4-80.1) POC Glucose 239 mg/dl (70-106) Test 01/13/25 19:09 01/13/25 18:25 01/13/25 18:00 Lactic Acid Level 1.2 mmol/L (0.4-2.0) Total Bilirubin 0.5 mg/dL (0.2-1.0) Aspartate Amino Transferase (AST) 18 U/L (13-40) Alanine Aminotransferase (ALT) 20 U/L (7-40) Alkaline Phosphatase 125 U/L (46-116) Total Protein 7.1 g/dL (5.7-8.2) Albumin 4.5 g/dL (3.2-4.8) Lipase 65 U/L (12-53) Urine Color Colorless (Yellow) Urine Clarity Clear (Clear) Urine pH 6.5 (5.0-9.0) Urine Specific [place] 1.008 (1.001-1.035) Urine Protein Negative (Negative) Urine Ketones Negative (Negative) Urine Blood Trace /uL (Negative) Urine Nitrite Negative (Negative) Urine Bilirubin Negative (Negative) Urine Urobilinogen Normal mg/dL (Negative) Urine Leukocyte Esterase Negative /uL (Negative) Urine RBC 1 /hpf (0 - 3) Urine Microscopic WBC 2 /HPF (0-3) Urine Squamous Epithelial Cells None seen /hpf (<5) Urine Bacteria None seen /hpf (None Seen) Urine Glucose Normal mg/dL (Normal) Other Laboratory Tests 01/16/25 06:05 Brief Hx & Hospital Course: 69-year-old male with a known history of BPH, hypertension who initially admitted to the hospital with the abdominal discomfort found to have acute urinary retention secondary to prostatomegaly. Patient was seen by Urology Harper catheter was recommended. Patient also had hyperkalemia which was treated. Patient also has a acute kidney injury suspected secondary to vasomotor nephropathy which is improved. Patient's has a bilateral hydroureteronephrosis secondary to obstructive uropathy, Urology recommended the patient to go home with a Harper catheter and outpatient surgical intervention for prostate enlargement. Patient is currently understand verbalized the understanding and agreeable to plan Condition at Discharge: Stable Final Diagnosis/Problems List 69-year-old male with a known history of BPH, hypertension who initially admitted to the hospital with the abdominal discomfort found to have 1. Acute urinary retention status post Harper catheter placement 2. Hyperkalemia 3. Acute kidney injury 4. 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 Hypertension Discharge Disposition: Home SNF Discharge Will this Physician continue t: No Discharge Instruct/Medications Diet: Cardiac 2g Na,low cholest Activity: No Restrictions, As Tolerated Follow Up/Referral: Follow up with the PCP in 1-2 weeks Follow up with in 1-2 weeks with a repeat BMP Medications: Medication as prescribed. New Medications: Sodium Bicarbonate (Sodium Bicarbonate) 650 Mg Tab 650 MG PO DAILY, #14 TAB Metoprolol Tartrate (Lopressor) 25 Mg Tb 25 MG PO BID for 30 Days, #60 TAB Continued Medications: Ondansetron HCl (Ondansetron Hydrochloride) 8 Mg Tab 8 MG PO Q6HP PRN, #30 TAB Tamsulosin Hcl (Flomax) 0.4 Mg Cap 0.4 MG PO DAILY for 15 Days, #15 CAP Discontinued Medications: Amlodipine Besylate (Amlodipine Besylate) 5 Mg Tab 1 TAB PO DAILY, #90 TAB 3 Refills Cefdinir (Cefdinir) 300 Mg Cap 1 CAP PO BID for 10 Days, #20 CAP Ciprofloxacin Hcl (Cipro) 500 Mg Tab 1 TAB PO BID for 10 Days, #20 TAB Scheduled Metoprolol Tartrate (Lopressor), 25 MG PO BID Sodium Bicarbonate (Sodium Bicarbonate), 650 MG PO DAILY Tamsulosin Hcl (Flomax), 0.4 MG PO DAILY Scheduled PRN Ondansetron HCl (Ondansetron Hydrochloride), 8 MG PO Q6HP PRN Discontinued Medications Amlodipine Besylate (Amlodipine Besylate), 1 TAB PO DAILY Cefdinir (Cefdinir), 1 CAP PO BID Ciprofloxacin Hcl (Cipro), 1 TAB PO BID Discharge Statement: "Patient was advised to return to the ER or call 911 if any headaches, dizziness, shortness of breath, chest pain, abdominal pain, bleeding, fevers, or worsening of medical condition. Patient was counseled about treatment plan, medications, possible side effects, patientverbalized understanding. All questions were answered to the best of my ability. This discharge took greater then 30 minutes in planning, reviewing documentation, counseling the patient, and discussing with other team members." ASSESSMENT ASSESSMENT Assessment 69-year-old male with a known history of BPH, hypertension who initially admitted to the hospital with the abdominal discomfort found to have 1. Acute urinary retention status post Harper catheter placement 2. Hyperkalemia 3. Acute kidney injury 4. 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 Hypertension Date of Service: Jan 16, 2025 Billing Provider: JAHAIRA MCKINNEY MD Common Visit Codes: 48933-RWX/OBS DISCH DAY >30min JAHAIRA MCKINNEY MD Jan 16, 2025 16:55
== END 2025-01-16 18:55 | disposition home or self-care (01) | DRG 725 ==
LOC: ER 17:22 → OVERFLOW 01-14 01:46 → TELE-CENTR 01-15 18:19
PROVIDERS: ADMIT Nurse Practitioner Family; ATTEND Nurse Practitioner Family
PROC: 0T9B70Z Drainage of Bladder with Drainage Device, Via Natural or Artificial Opening (ICD-10-PCS; principal; 2025-01-13)
DX: N40.1 Benign prostatic hyperplasia with lower urinary tract symptoms (principal); N17.0 Acute kidney failure with tubular necrosis; N13.6 Pyonephrosis; E87.20 Acidosis, unspecified; N13.8 Other obstructive and reflux uropathy; N25.81 Secondary hyperparathyroidism of renal origin; E87.5 Hyperkalemia; E83.39 Other disorders of phosphorus metabolism; I10 Essential (primary) hypertension; N32.0 Bladder-neck obstruction; E87.6 Hypokalemia; E83.42 Hypomagnesemia; R33.8 Other retention of urine; Z79.899 Other long term (current) drug therapy; Z87.891 Personal history of nicotine dependence
CPT/HCPCS: 36415; 51702; 74176; 76775; 80048; 80053; 81001; 82010; 82306; 82962; 83605; 83690; 83735; 83970; 84100; 84132; 85025; 87040; 87086; 96365; G0378; J1815; J2405

== ENCOUNTER 2025-03-13 16:48 | Emergency (ER) | payer OTHER ==
[~2025-03-13] VITALS: Ht 170.2 cm; Wt 66.8 kg
[~2025-03-13 16:48] MED LIST changes: -CIPR-173 PO; +MET25T PO; +ONDA-180 PO; +SODI650T PO
[2025-03-13 17:11] LABS: Hematocrit 41.8 % (41.0-53.0); Hemoglobin 13.9 g/dL (13.5-17.5); Mean Corpuscular Hemoglobin 27.8 pg (28.0-32.0); Mean Corpuscular Volume 83.4 fL (80.0-100.0); Nucleated Red Blood Cells % 0.0 %
[2025-03-13 17:24] LABS: Urine Protein, UAD Negative (Negative)
[2025-03-13 17:26] LABS: Alanine Aminotransferase 19 U/L (7-40); Albumin 4.4 g/dL (3.2-4.8); Anion Gap 11 (5-15); BUN/Creatinine Ratio 15.9 (10.0-20.0); Blood Urea Nitrogen 20 mg/dL (9-23); Calcium 9.6 mg/dL (8.7-10.4); Carbon Dioxide 24 mmol/L (20-31); Chloride 105 mmol/L (98-107); Glucose 96 mg/dL (74-106); Lipase 32 U/L (12-53); Potassium 4.3 mmol/L (3.5-5.1); Sodium 140 mmol/L (136-145); Total Protein 7.1 g/dL (5.7-8.2)
[2025-03-13 17:27] LABS: Alkaline Phosphatase 145 U/L (46-116); Bilirubin, Total 0.4 mg/dL (0.2-1.0)
--- NOTE | 2025-03-13 17:32 | ED.PDOC ---
GI ASSESSMENT HPI Comments 69-year-old male who presents to the ED for chief complaint of abdominal pain. - Patient states he has been having right lower quadrant abdominal pain since earlier this a.m. at approximately 8:00 a.m. - Patient states the pain is constant, nonradiating , with no associated exacerbating or relieving factors - Patient otherwise denies any associated symptoms including nausea vomiting fever dysuria or associated symptoms - Patient otherwise states that he has a history of urinary retention and states he has a Harper catheter in place. - patient on 80 has not above pressure 146/109 with the associated heart rate of 105 with otherwise stable vitals in the ED Patient recently had a cystoscopy. Patient has completed a course of antibiotics few days ago. Past Medical history: 1. Acute urinary retention status post Harper catheter placement2. Hyperkalemia 3. Acute kidney injury4. 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 Hypertension Past Surgical history: Medications: Flomax Social history: denies EOTH, denies tobacco use, denies drug use Allergies: NKDA HPI: Poor Historian. REVIEW OF SYSTEMS: CONSTITUTIONAL: Denies acute: fever, diaphoresis, chills, generalized weakness. HEAD: Denies acute: headache, photophobia Eyes: Denies acute: Double vision, vision loss, eye pain, eye discharge. EARS: Denies acute: tinnitus, hearing loss, ear discharge, ear pain, THROAT: Denies acute: sore throat, swelling, difficulty swallowing , pain with swallowing, change in voice. NECK: Denies acute: neck pain, neck swelling, stiff neck. HEART: Denies acute : chest pain, palpitations, LUNGS: Denies acute: SOB, wheezing, cough, hemoptysis ABDOMEN: Denies acute: Nausea, Vomiting, diarrhea, melena , hematemesis, hematochezia SKIN: Denies acute: rash, redness, lesions, itchiness. EXTREMITIES: Denies acute: calf pain, numbness, tingling, weakness, denies pain in extremity. Denies acute: Low back pain. Neuro: Denies acute: focal neurological deficit, motor or sensory focal neurological deficit, tremors, seizure like activity, confusion, dizziness, change in mental status, loss of bowel or bladder function, cauda equina like symptoms. : Denies acute: dysuria, hematuria, flank pain, increase in urinary frequency. PSYCH: Denies acute: hallucination, suicidal ideation, homicidal ideation. PHYSICAL EXAM: General: ---no-----acute distress, awake and alert. Head: normocephalic, atraumatic. Neck: supple, trachea is midline, no swelling. Throat: Normal phonation. Eyes:, no erythema, no purulent discharge, no proptosis, no icterus. Heart: regular rate, regular rhythm, no significant murmur appreciated. Lungs: no apparent respiratory distress, Able to speak in full sentences. No wheezing, no rhonchi, no crackles. No stridors Clear to auscultation bilaterally. Abdomen: Right lower quadrant/right groin mild tender to palpation, non distended, soft, no guarding, no rebound, + bowel sounds. Neuro: Awake, Alert, oriented to name, self, situation, follows commands GCS=15. Speech is normal. Skin: no petechia, no purpura, no cyanosis, non-pale, not jaundice. Lower extremities: --no - Pitting edema no deformity, no focal swelling, no calf TTP. Makes eye contact. moves all four extremities. Face: no apparent facial droop. Ambulating in the ED independently. ED COURSE: DISCLAIMER: This medical document was created using an electronic medical record system with voice recognition software and computerized dictation system. Although this document has been carefully reviewed, there might still be some phonetic and typographical errors. Occasional wrong-word or "sound-alike" substitutions may have occurred due to the inherent limitations of voice recognition software. These areas are purely typographical due to imperfections of the software programs and do not reflect any compromise in the patient's medical care. Please read the chart carefully and recognize, using context, where these substitutions have occurred. Chief Complaint: Abdominal Pain Time Seen by MD: 17:29 Reviewed Notes: Medications, Allergies Allergies: Coded Allergies: NO KNOWN ALLERGIES (Unverified , 12/01/24) Home Meds Active Scripts Nitrofurantoin Monohydrate Mac (Macrobid) 100 Mg Cap, 100 MG PO BID for 7 Days, #14 CAP Prov:MONIKA FOSTER DO 03/13/25 Sodium Bicarbonate (Sodium Bicarbonate) 650 Mg Tab, 650 MG PO DAILY, #14 TAB Prov:JAHAIRA MCKINNEY MD 01/16/25 Metoprolol Tartrate (Lopressor) 25 Mg Tb, 25 MG PO BID for 30 Days, #60 TAB Prov:JAHAIRA MCKINNEY MD 01/16/25 Ondansetron HCl (Ondansetron Hydrochloride) 8 Mg Tab, 8 MG PO Q6HP PRN, #30 TAB Prov:CAMRON ASHLEY MD 01/13/25 Tamsulosin Hcl (Flomax) 0.4 Mg Cap, 0.4 MG PO DAILY for 15 Days, #15 CAP Prov:BRAYAN LEON MD 12/01/24 Information Source: Patient, Relative Mode of Arrival: Ambulatory Brought in by: Family member Past Medical History PAST MEDICAL HISTORY: HTN Surgical History: Denies all surgeries Family History Family History: Reviewed,noncontributory to illness, Unknown Social History Smoker: Non-Smoker Alcohol: Denies ETOH Use Drugs: Denies Drug Use Lives In: Home Was a procedure done? Was a procedure done?: No GI differential Dx Differential Diagnosis: Other (DDX include but not limited to diverticulitis, colitis, gastroenteritis, acute abdomen, SBO, enteritis, constipation, volvulus, appendicitis, Gallbladder disease, choledocolithiasis, ascending cholangitis, pancreatitis, intraAbdominal mass/neoplasm, hepatitis, UTI, pylonephritis, kidney stone, aneurysm, dissection, Inflammatory bowel disease, gastroparesis, ischemic bowel.) X-Ray, Labs, Meds, VS Vital Signs Date Time Temp Pulse Resp B/P (MAP) Pulse Ox O2 Delivery O2 Flow Rate FiO2 03/13/25 21:36 93 18 157/93 (114) 97 03/13/25 19:56 115 18 128/93 (105) 98 03/13/25 19:13 98.4 110 18 135/97 (110) 98 98.4 03/13/25 19:13 110 18 98 Room Air* 0 21 03/13/25 18:26 103 18 184/101 (128) 100 03/13/25 18:26 103 18 100 Room Air 03/13/25 16:50 98.1 105 20 146/109 100 98.1 Lab Test 03/13/25 17:11 10/29/25 17:04 Range/Units Urine Color Light-yellow Yellow Urine Clarity Clear Clear Urine pH 5.0 5.0-9.0 Urine Specific Ina 1.015 1.001-1.035 Urine Protein Negative Negative Urine Ketones Negative Negative Urine Blood Negative Negative /uL Urine Nitrite 2+ H Negative Urine Bilirubin Negative Negative Urine Urobilinogen Normal Negative mg/dL Urine Leukocyte Esterase 2+ Negative /uL Urine RBC 2 0 - 3 /hpf Urine Microscopic WBC 18 H 0-3 /HPF Urine Squamous Epithelial Cells None seen <5 /hpf Urine Bacteria Few H None Seen /hpf Urine Glucose Normal Normal mg/dL White Blood Count 9.9 4.4-10.8 10^3/uL Red Blood Count 5.01 4.5-5.90 10^6/uL Hemoglobin 13.9 13.5-17.5 g/dL Hematocrit 41.8 41.0-53.0 % Mean Corpuscular Volume 83.4 80.0-100.0 fL Mean Corpuscular Hemoglobin 27.8 L 28.0-32.0 pg Mean Corpuscular Hemoglobin Concent 33.4 32.0-36.0 g/dL Red Cell Distribution Width 16.4 H 11.8-14.3 % Platelet Count 258 140-450 10^3/uL Mean Platelet Volume 6.3 L 6.9-10.8 fL Neutrophils (%) (Auto) 77.8 37.0-80.0 % Lymphocytes (%) (Auto) 15.4 10.0-50.0 % Monocytes (%) (Auto) 5.7 0.0-12.0 % Eosinophils (%) (Auto) 0.6 0.0-7.0 % Basophils (%) (Auto) 0.5 0.0-2.0 % Neutrophils # (Auto) 7.7 1.6-8.6 10 ^3/uL Lymphocytes # (Auto) 1.5 0.4-5.4 10 ^3/uL Monocytes # (Auto) 0.6 0-1.3 10 ^3/uL Eosinophils # (Auto) 0.1 0-0.8 10 ^3/uL Basophils # (Auto) 0.1 0-0.2 10 ^3/uL Nucleated Red Blood Cells 0.0 % Sodium Level 140 136-145 mmol/L Potassium Level 4.3 3.5-5.1 mmol/L Chloride Level 105 98-107 mmol/L Carbon Dioxide Level 24 20-31 mmol/L Anion Gap 11 5-15 Blood Urea Nitrogen 20 9-23 mg/dL Creatinine 1.26 0.700-1.30 mg/dL Glomerular Filtration Rate Calc 62 >90 mL/min BUN/Creatinine Ratio 15.9 10.0-20.0 Serum Glucose 96 74-106 mg/dL Lactic Acid Level 0.7 0.4-2.0 mmol/L Calcium Level 9.6 8.7-10.4 mg/dL Magnesium Level 2.0 1.6-2.6 mg/dL Total Bilirubin 0.4 0.2-1.0 mg/dL Aspartate Amino Transferase (AST) 18 13-40 U/L Alanine Aminotransferase (ALT) 19 7-40 U/L Alkaline Phosphatase 145 H 46-116 U/L Troponin I High Sensitivity 5 </=54 ng/L Total Protein 7.1 5.7-8.2 g/dL Albumin 4.4 3.2-4.8 g/dL Lipase 32 12-53 U/L [place] [address] Ph: [phone] DIAGNOSTIC IMAGING Diagnostic Imaging Report : [id number] Signed PATIENT: KENNETH JEFFERY ACCT: [id number] UNIT: [id number] : 1955 LOC: ER ROOM / BED: / AGE / SEX: 69 / M ADM STATUS: REG ER SERVICE 1653 ORDERING PHYSICIAN: MONIKA FOSTER DO PROCEDURE(s): ABPL - CT AB PEL WO CON-NO ORAL OR IV REASON: abd pain ORDER NUMBER(s): [id number], ACCESSION NUMBER(s): [id number] Exam: CT CT AB PEL WO CON-NO ORAL OR IV History: abd pain Comparison Study: US RENAL AND BLADDER on DOS: 03/02/25, US KIDNEY on DOS: 01/14/25, CT CT AB PEL WO CON-NO ORAL OR IV on DOS: 01/13/25 Technique: Multidetector spiral CT of the abdomen was performed from lung bases to pubic symphysis. Imaging was performed without IV contrast. Axial, coronal and sagittal multiplanar reformats were obtained from the axial data set by the technologist. Radiation Dose : 1. Abdomen/Pelvis: CTDIvol 7.92 mGy, DLP 425.09 mGy*cm. Findings: Evaluation of solid organs is limited due to lack of intravenous contrast use. Lung Bases: No acute or significant lung base finding. Normal heart size. No pleural or pericardial effusion. Liver: The liver is normal in size. No focal lesions. Gallbladder and Biliary Tree: Unremarkable Spleen: Unremarkable Pancreas: The pancreas is grossly normal in appearance. Adrenal Glands: Unremarkable Kidneys: Kidneys are grossly normal without calculi or hydronephrosis. Bladder: Diffusely thickened. Harper catheter in-situ. Bowel: The stomach is grossly normal in appearance. Small bowel and colon are normal in caliber and distribution. The appendix is not visualized; however, no secondary findings of acute appendicitis identified. Fairly large volume of stool throughout the colon. Ascites: Absent Lymphadenopathy: No mesenteric, retroperitoneal or periportal lymphadenopathy. Abdominal Wall and Mesentery: Unremarkable. Vasculature: The visualized abdominal aorta is normal in size and caliber. Evaluation of abdominal and pelvic vessels is limited due to lack of intravenous contrast. Pelvic Organs: Prostate gland is enlarged measuring 6.5 x 5.1 cm. Musculoskeletal: No aggressive focal bony lesions, acute fractures or dislocation. IMPRESSION: Fairly large volume of stool throughout the colon. Otherwise no acute abnormality. BPH with thickened urinary bladder likely related to chronic bladder outlet obstruction. Radiation optimization: All CT scans at this facility use at least one of these dose optimization techniques: automated exposure control mA and/or kV adjustment per patient size (includes targeted exams where dose is matched to clinical indication) or iterative reconstruction. ATED BY: MARJ QUINN MD DICTATED DATE/TIME: 03/13/251814 SIGNED BY: MARJ QUINN MD SIGNED DATE/TIME: 03/13/251814 CC: Time of 1ST Reevaluation: 18:00 Reevaluation 1ST: Unchanged Patient Education/Counseling: Diagnosis, Treatment Family Education/Counseling: Diagnosis, Treatment Comments MDM: patient presented with the above HPI.---abdominal pain---workup was initiated. patient was found with the above mentioned diagnosis. the following medications were ordered: please refer to order lists of meds and tests obtained by myself Dr. Foster. Patient ED course and VS have been stabilized. Patient has been reassessed in the ED and remained in a stable condition. Pertinent incidental findings were discussed with the patient and/or family. Patient/family voices understanding and is agreeable with plan. Patient has been observed in the ED adequate length of time to insure improvement/stability. Escalation of care considered: Consideration of escalation to observation or admission Patient was DISCHARGED home in a stable condition. All the reports of any imaging studies that were ordered by myself were reviewed by myself. SEPSIS Sepsis Screen Date sepsis recognized/suspect: Mar 13, 2025 Time Sepsis recognized/suspect: 1653 Recent Procedure: No On Antibiotic Therapy: No Respiratory Rate >20: No Heart Rate >90: No Temp<36 C (96.8 F) or >38.3 C: No SBP <90 or MAP <65 mmHG: No New Acute Mental Status Change: No Is the patient on CPAP, BIPAP,: No Physician Orders Talent Acquisition Relationship Manager (03/13/25 ) Ct Ab Pel Wo Con-No Oral Or Iv (03/13/25 16:53) Electrocardigram (03/13/25 16:53) Vital Signs Date Time Temp Pulse Resp B/P (MAP) Pulse Ox O2 Delivery O2 Flow Rate FiO2 03/13/25 21:36 93 18 157/93 (114) 97 03/13/25 19:56 115 18 128/93 (105) 98 03/13/25 19:13 98.4 110 18 135/97 (110) 98 98.4 03/13/25 19:13 110 18 98 Room Air* 0 21 03/13/25 18:26 103 18 184/101 (128) 100 03/13/25 18:26 103 18 100 Room Air 03/13/25 16:50 98.1 105 20 146/109 100 98.1 Laboratory Tests Test 03/13/25 17:04 Lactic Acid Level 0.7 mmol/L (0.4-2.0) White Blood Count 9.9 10^3/uL (4.4-10.8) Departure 1 Departure Time of Disposition: 17:34 Impression: Primary Impression: Right lower quadrant pain Additional Impressions: Constipation UTI (urinary tract infection) BPH (benign prostatic hyperplasia) Disposition: 01 HOME / SELF CARE / HOMELESS Condition: Stable Additional Instructions: Additional instructions: Please read all instructions provided in this packet carefully. You MUST follow-up with your primary care/family doctor in 1 to 2 days. If you are unable to see your primary care/family doctor, please return to our emergency room for re-assessment and re-evaluation in 1 to 2 days. Return to the emergency room here in our facility or to the nearest ER [facility] if your symptoms change or worsen. CONSULTATIONS: you MUST Follow-up for consultation as soon as possible with: --urology as arranged in two days. Cardiology in 1-2 days. Please call for appointment. You MUST call the consultants office yourself to make an appointment. You may need to arrange that through your insurance and/or your primary/family doctor. If you are unable to see the automobile sales consultant in 1 to 2 days, you must return to our emergency room (or any other ER of your choice) for re-assessment and re- evaluation. Adequate fluid hydration. Although you have been discharged from the Emergency Department, this does not mean that you have a "clean bill of health". No definitive diagnosis for your symptoms has been made today. It is possible that you are in the process of developing a serious illness. This is why you must return to the ED without fail if any new or worsening symptoms develop. Increase fiber intake. Below is a copy of your radiological report for follow up: [place] [address] Ph: [phone] DIAGNOSTIC IMAGING Diagnostic Imaging Report : [id number] Signed PATIENT: KENNETH JEFFERY ACCT: [id number] UNIT: [id number] : 1955 LOC: ER ROOM / BED: / AGE / SEX: 69 / M ADM STATUS: REG ER SERVICE 1653 ORDERING PHYSICIAN: MONIKA FOSTER DO PROCEDURE(s): ABPL - CT AB PEL WO CON-NO ORAL OR IV REASON: abd pain ORDER NUMBER(s): [id number], ACCESSION NUMBER(s): [id number] Exam: CT CT AB PEL WO CON-NO ORAL OR IV History: abd pain Comparison Study: US RENAL AND BLADDER on DOS: 03/02/25, US KIDNEY on DOS: 01/14/25, CT CT AB PEL WO CON-NO ORAL OR IV on DOS: 01/13/25 Technique: Multidetector spiral CT of the abdomen was performed from lung bases to pubic symphysis. Imaging was performed without IV contrast. Axial, coronal and sagittal multiplanar reformats were obtained from the axial data set by the technologist. Radiation Dose : 1. Abdomen/Pelvis: CTDIvol 7.92 mGy, DLP 425.09 mGy*cm. Findings: Evaluation of solid organs is limited due to lack of intravenous contrast use. Lung Bases: No acute or significant lung base finding. Normal heart size. No pleural or pericardial effusion. Liver: The liver is normal in size. No focal lesions. Gallbladder and Biliary Tree: Unremarkable Spleen: Unremarkable Pancreas: The pancreas is grossly normal in appearance. Adrenal Glands: Unremarkable Kidneys: Kidneys are grossly normal without calculi or hydronephrosis. Bladder: Diffusely thickened. Harper catheter in-situ. Bowel: The stomach is grossly normal in appearance. Small bowel and colon are normal in caliber and distribution. The appendix is not visualized; however, no secondary findings of acute appendicitis identified. Fairly large volume of stool throughout the colon. Ascites: Absent Lymphadenopathy: No mesenteric, retroperitoneal or periportal lymphadenopathy. Abdominal Wall and Mesentery: Unremarkable. Vasculature: The visualized abdominal aorta is normal in size and caliber. Evaluation of abdominal and pelvic vessels is limited due to lack of intravenous contrast. Pelvic Organs: Prostate gland is enlarged measuring 6.5 x 5.1 cm. Musculoskeletal: No aggressive focal bony lesions, acute fractures or dislocation. IMPRESSION: Fairly large volume of stool throughout the colon. Otherwise no acute abnormality. BPH with thickened urinary bladder likely related to chronic bladder outlet obstruction. Radiation optimization: All CT scans at this facility use at least one of these dose optimization techniques: automated exposure control mA and/or kV adjustment per patient size (includes targeted exams where dose is matched to clinical indication) or iterative reconstruction. ATED BY: MARJ QUINN MD DICTATED DATE/TIME: 03/13/251814 SIGNED BY: MARJ QUINN MD SIGNED DATE/TIME: 03/13/251814 CC: e-Prescriptions Nitrofurantoin Monohydrate Mac (Macrobid) 100 Mg Cap 100 MG PO BID for 7 Days, #14 CAP Prov: MONIKA FOSTER DO 10/29/25 Discharged With: Self Critical Care Note Critical Care Time?: No I personally scribed for MONIKA FOSTER DO ([email or web address]) on 03/13/25 at 17:32. Electronically submitted by Rabia Quintero ([email or web address]). I personally scribed for MONIKA FOSTER DO ([email or web address]) on 03/13/25 at 18:38. Electronically submitted by Rabia Quintero ([email or web address]). MONIKA FOSTER DO Mar 13, 2025 17:32
--- NOTE | 2025-03-13 18:18 | DVH ---
Exam: CT CT AB PEL WO CON-NO ORAL OR IV History: abd pain Comparison Study: US RENAL AND BLADDER on DOS: 03/02/25, US KIDNEY on DOS: 01/14/25, CT CT AB PEL WO CO N-NO ORAL OR IV on DOS: 01/13/25 Technique: Multidetector spiral CT of the abdomen was performed from lung bases to pubic symphysis. I maging was performed without IV contrast. Axial, coronal and sagittal multiplanar reformats were obta ined from the axial data set by the technologist. Radiation Dose : 1. Abdomen/Pelvis: CTDIvol 7.92 mGy, DLP 425.09 mGy*cm. Findings: Evaluation of solid organs is limited due to lack of intravenous contrast use. Lung Bases: No acute or significant lung base finding. Normal heart size. No pleural or pericardial effusion. Liver: The liver is normal in size. No focal lesions. Gallbladder and Biliary Tree: Unremarkable Spleen: Unremarkable Pancreas: The pancreas is grossly normal in appearance. Adrenal Glands: Unremarkable Kidneys: Kidneys are grossly normal without calculi or hydronephrosis. Bladder: Diffusely thickened. Harper catheter in-situ. Bowel: The stomach is grossly normal in appearance. Small bowel and colon are normal in caliber and d istribution. The appendix is not visualized; however, no secondary findings of acute appendicitis maxi ntified. Fairly large volume of stool throughout the colon. Ascites: Absent Lymphadenopathy: No mesenteric, retroperitoneal or periportal lymphadenopathy. Abdominal Wall and Mesentery: Unremarkable. Vasculature: The visualized abdominal aorta is normal in size and caliber. Evaluation of abdominal a nd pelvic vessels is limited due to lack of intravenous contrast. Pelvic Organs: Prostate gland is enlarged measuring 6.5 x 5.1 cm. Musculoskeletal: No aggressive focal bony lesions, acute fractures or dislocation. IMPRESSION: Fairly large volume of stool throughout the colon. Otherwise no acute abnormality. BPH with thickened urinary bladder likely related to chronic bladder outlet obstruction. Radiation optimization: All CT scans at this facility use at least one of these dose optimization anabella hniques: automated exposure control mA and/or kV adjustment per patient size (includes targeted exam s where dose is matched to clinical indication) or iterative reconstruction.
[2025-03-13 19:13] VITALS: PULSE 110; RESP 18; TEMP 98.4; O2SAT 98
[2025-03-13] MEDS: HYDROcodone-ACET 5/325MG TAB PO ONE (19:15)
[2025-03-13] MEDS: LABETALOL HCL 20 MG/4 ML VL IV ONE (19:56)
[2025-03-13] MEDS: SODIUM CHLORIDE 0.9% 1,000 ML IV ONE (20:17)
[2025-03-13] MEDS ORDERED: NITR-87 PO (20:43)
[2025-03-13 21:36] VITALS: BP 157/93; PULSE 93; RESP 18; O2SAT 97
== END 2025-03-13 21:49 | disposition home or self-care (01) ==
LOC: ER 16:48
DX: R10.31 Right lower quadrant pain (principal); K59.00 Constipation, unspecified; N39.0 Urinary tract infection, site not specified; N40.0 Benign prostatic hyperplasia without lower urinary tract symptoms; I10 Essential (primary) hypertension; Z79.899 Other long term (current) drug therapy
CPT/HCPCS: 36415; 74176; 80053; 81001; 83605; 83690; 83735; 84484; 85025; 96360; 99285; J7030

== ENCOUNTER 2025-03-30 16:36 | Emergency (ER) | payer OTHER ==
[~2025-03-30 16:36] MED LIST changes: +NITR-87 PO
--- NOTE | 2025-03-30 17:11 | ECG ---
[facility] Test Date: 2025-03-30 Test Time: 16:51:53 Pat Name: KENNETH JEFFERY Department: ED Room: Gender: M Packager Or Packer And Weigher: GILBERTO : 1955 Requested By: EVELIN TEE Order Number: [id number] Reading MD: Jesus Siddiqui Measurements Intervals [place] Rate: 68 P: 55 [place]: 188 QRS: 0 QRSD: 107 T: 19 QT: 368 QTc: 392 Interpretive Statements Sinus rhythm Electronically Signed On 04-02-2025 17:53:38 PST by Jesus Siddiqui Please click the below link to view image of tracing.
--- NOTE | 2025-03-30 17:36 | DVH ---
CHEST RADIOGRAPH Indication: htn Technique: Single frontal view of the chest was obtained Comparison: None FINDINGS: Lines and Tubes: None Lungs: No focal consolidation. Pleura: No effusion. No pneumothorax. Cardiomediastinal contours: Unremarkable Bones: No acute osseous abnormality. IMPRESSION: No acute cardiopulmonary disease.
--- NOTE | 2025-03-30 17:38 | ED.PDOC ---
History of Present Illness HPI Comments 69-year-old male presents to the ER with medical history of hypertension and the chief complaint of high blood pressure. Patient reports on finishing a 14 day course of Bactrim Eidson when he started having a sudden onset of high blood pressure. Patient had a blood pressure of 208/105 in triage associated with a 6/10 headache and nausea for which was on and off for five days. Patient notes on the headache being on the top of the head. Denies any other symptoms at this time. Denies chills, fever, /V/D, SOB, CP. No other associated symptoms, modifiers, recent injuries or sick contacts present at this time. Chief Complaint: High Blood Pressure Time Seen by MD: 17:05 Reviewed Notes: Nurses Notes, Medications, Allergies Allergies: Coded Allergies: NO KNOWN ALLERGIES (Unverified , 12/01/24) Home Meds Active Scripts Nitrofurantoin Monohydrate Mac (Macrobid) 100 Mg Cap, 100 MG PO BID for 7 Days, #14 CAP Prov:MONIKA FOSTER DO 03/13/25 Sodium Bicarbonate (Sodium Bicarbonate) 650 Mg Tab, 650 MG PO DAILY, #14 TAB Prov:JAHAIRA MCKINNEY MD 01/16/25 Metoprolol Tartrate (Lopressor) 25 Mg Tb, 25 MG PO BID for 30 Days, #60 TAB Prov:JAHAIRA MCKINNEY MD 01/16/25 Ondansetron HCl (Ondansetron Hydrochloride) 8 Mg Tab, 8 MG PO Q6HP PRN, #30 TAB Prov:CAMRON ASHLEY MD 01/13/25 Tamsulosin Hcl (Flomax) 0.4 Mg Cap, 0.4 MG PO DAILY for 15 Days, #15 CAP Prov:BRAYAN LEON MD 12/01/24 Information Source: Patient Mode of Arrival: Ambulatory Severity: Moderate Timing: Days Duration: Since onset, Days Prehospital treatment: None Past Medical History PAST MEDICAL HISTORY: HTN Surgical History: Denies all surgeries Family History Family History: Reviewed,noncontributory to illness, Unknown Social History Smoker: Non-Smoker Alcohol: Denies ETOH Use Drugs: Denies Drug Use Lives In: Home Constitutional: denies: chills, diaphoresis, fatigue, fever, malaise, sweats, weakness, others EENTM: denies: blurred vision, double vision, ear bleeding, ear discharge, ear drainage, ear pain, ear ringing, eye pain, eye redness, hearing loss, mouth pain , mouth swelling, nasal discharge, nose bleeding, nose congestion, nose pain, photophobia, tearing, throat pain, throat swelling, voice changes, others Respiratory: denies: cough, hemoptysis, orthopnea, SOB at rest, shortness of breath, SOB with excertion, stridor, wheezing, others Cardiovascular: reports: others (High blood pressure); denies: chest pain, dizzy spells, diaphoresis, Dyspnea on exertion, edema, irregular heart beat, left arm pain, lightheadedness, palpitations, PND, syncope Gastrointestinal: reports: nausea; denies: abdomen distended, abdominal pain, blood streaked bowels, constipated, diarrhea, dysphagia, difficulty swallowing, hematemesis, melena, poor appetite, poor fluid intake, rectal bleeding, rectal pain, vomiting, others Genitourinary: denies: burning, dysuria, flank pain, frequency, hematuria, incontinence, penile discharge, penile sore, pain, testicle pain, testicle swelling, urgency, others Neurological: reports: headache; denies: dizziness, fainting, left sided numbness, left sided weakness, numbness, paresthesia, pre-existing deficit, right sided numbness, right sided weakness, seizure, speech problems, tingling, tremors, weakness, others Musculoskeletal: denies: back pain, gout, joint pain, joint swelling, muscle pain, muscle stiffness, neck pain, others Integumetry: denies: bruises, change in color, change in hair/nails, dryness, laceration, lesions, lumps, rash, wounds, others Allergic/Immunocompromised: denies: Difficulty Healing, Frequent Infections, Hives, Itching, others Hematologic/Lymphatic: denies: anemia, blood clots, easy bleeding, easy bruising, swollen glands, others Endocrine: denies: excessive hunger, excessive sweating, excessive thirst, excessive urination, flushing, intolerance to cold, intolerance to heat, unexplained weight gain, unexplained weight loss, others Psychiatric: denies: anxiety, bipolar disorder, depression, hopeless, panic disorder, schizophrenia, sleepless, suicidal, others All Other Systems: Reviewed and Negative Physical Exam General Appearance: No Apparent Distress, Normal HEENT: Normal ENT Inspection, Pharynx Normal, TMs Normal Neck: Full Range of Motion, Non-Tender, Normal, Normal Inspection Respiratory: Chest Non-Tender, Lungs Clear, No Accessory Muscle Use, No Respiratory Distress, Normal Breath Sounds Cardiovascular: No Edema, No JVD, No Murmur, No Gallop, Normal Peripheral Pulses, Regular Rate/Rhythm Breast Exam: Deferred Gastrointestinal: No Organomegaly, Non Tender, No Pulsatile Mass, Normal Bowel Sounds, Soft Genitalia: Deferred Pelvic: Deferred Rectal: Deferred Extremities: No calf tenderness, Normal capillary refill, Normal inspection, Normal range of motion, Non-tender, No pedal edema Musculoskeletal : Apperance: Normal Neurologic: Alert, colorist photography II-XII nml as Tested, No Motor Deficits, Normal Affect, Normal Mood, No Sensory Deficits Cerebellar Function: Normal Reflexes: Normal Skin: Dry, Normal Color, Warm Lymphatic: No Adenopathy Was a procedure done? Was a procedure done?: No Differential Dx Considerations may include: Presents emergency, hypertensive urgency, electrolyte abnormality, infectious etiology, viral syndrome, dehydration X-Ray, Labs, Meds, VS Vital Signs Date Time Temp Pulse Resp B/P (MAP) Pulse Ox O2 Delivery O2 Flow Rate FiO2 03/30/25 16:40 97.9 77 18 199/99 99 97.9 Lab Test 03/30/25 17:28 Range/Units White Blood Count 6.1 4.4-10.8 10^3/uL Red Blood Count 4.40 L 4.5-5.90 10^6/uL Hemoglobin 12.2 L 13.5-17.5 g/dL Hematocrit 37.0 L 41.0-53.0 % Mean Corpuscular Volume 84.1 80.0-100.0 fL Mean Corpuscular Hemoglobin 27.6 L 28.0-32.0 pg Mean Corpuscular Hemoglobin Concent 32.9 32.0-36.0 g/dL Red Cell Distribution Width 15.4 H 11.8-14.3 % Platelet Count 271 140-450 10^3/uL Mean Platelet Volume 6.4 L 6.9-10.8 fL Neutrophils (%) (Auto) 69.3 37.0-80.0 % Lymphocytes (%) (Auto) 22.7 10.0-50.0 % Monocytes (%) (Auto) 6.0 0.0-12.0 % Eosinophils (%) (Auto) 1.5 0.0-7.0 % Basophils (%) (Auto) 0.5 0.0-2.0 % Neutrophils # (Auto) 4.2 1.6-8.6 10 ^3/uL Lymphocytes # (Auto) 1.4 0.4-5.4 10 ^3/uL Monocytes # (Auto) 0.4 0-1.3 10 ^3/uL Eosinophils # (Auto) 0.1 0-0.8 10 ^3/uL Basophils # (Auto) 0 0-0.2 10 ^3/uL Nucleated Red Blood Cells 0.0 % Sodium Level 142 136-145 mmol/L Potassium Level 5.3 H 3.5-5.1 mmol/L Chloride Level 109 H 98-107 mmol/L Carbon Dioxide Level 21 20-31 mmol/L Anion Gap 12 5-15 Blood Urea Nitrogen 30 H 9-23 mg/dL Creatinine 3.40 H 0.700-1.30 mg/dL Glomerular Filtration Rate Calc 19 >90 mL/min BUN/Creatinine Ratio 8.8 L 10.0-20.0 Serum Glucose 78 74-106 mg/dL Calcium Level 8.8 8.7-10.4 mg/dL Troponin I High Sensitivity 5 </=54 ng/L Time of 1ST Reevaluation: 17:35 Reevaluation 1ST: Unchanged Patient Education/Counseling: Diagnosis, Treatment, Prognosis Family Education/Counseling: No Family Present SEPSIS Sepsis Screen Date sepsis recognized/suspect: Mar 30, 2025 Time Sepsis recognized/suspect: 1641 Recent Procedure: No On Antibiotic Therapy: No Respiratory Rate >20: No Heart Rate >90: No Temp<36 C (96.8 F) or >38.3 C: No SBP <90 or MAP <65 mmHG: No New Acute Mental Status Change: No Is the patient on CPAP, BIPAP,: No Physician Orders Chest Portable (03/30/25 17:10) Troponin-I Hs (03/30/25 18:10) Troponin-I Hs (03/30/25 20:10) Electrocardigram (03/30/25 18:10) Electrocardigram (03/30/25 20:10) Head Without Contrast (03/30/25 17:26) Vital Signs Date Time Temp Pulse Resp B/P (MAP) Pulse Ox O2 Delivery O2 Flow Rate FiO2 03/30/25 16:40 97.9 77 18 199/99 99 97.9 Laboratory Tests Test 03/30/25 17:28 White Blood Count 6.1 10^3/uL (4.4-10.8) Departure 1 Departure Time of Disposition: 18:23 (Patient presented with hypertension and symptoms concerning for hypertensive emergency. Patient is receiving iv blood pressure medications requiring intensive monitoring. Data: 1. I ordered and reviewed the result of at least 3 labs including a CBC, BMP, and troponin. 2. I independently interpreted the following tests: CT Brain: Which appears benign. EKG which is N ormal Sinus RhythmRisk:This patient has a high risk of morbidity due to further diagnostic testing or treatment and may suffer from an acute cardiac disorder. Workup reveals hypertensive emergency and patient should be admitted for further workup. and possible expert consultation. ) Impression: Primary Impression: Hypertensive urgency Additional Impressions: MADHURI (acute kidney injury) Hyperkalemia Disposition: ADMITTED INPATIENT Admit to: Tele Condition: Guarded Critical Care Note Critical Care Time?: Yes Critical care comment: Hypertensive urgency, hyperkalemia, acute kidney injury Authorized and Performed by: Evelin South MD Total critical care time: Approximately 41 minutes Due to a high probability of clinically significant, life threatening deterioration, the patient required my highest level of preparedness to intervene emergently and I personally spent this critical care time directly and personally managing the patient. This critical care time included obtaining a history; examining the patient; pulse oximetry; ordering and review of studies; arranging urgent treatment with development of a management plan; evaluation of patient's response to treatment; frequent reassessment; and, discussions with other providers. This critical care time was performed to assess and manage the high probability of imminent, life-threatening deterioration that could result in multi-organ failure. It was exclusive of separately billable procedures and treating other patients and teaching time. Please see my other sections and the rest of the note for further information on patient assessment and treatment. Stability Stability form required: No I personally scribed for EVELIN SOUTH MD ([email or web address]) on 03/30/25 at 17:38. Electronically submitted by Francisco Pinzon ([email or web address]). EVELIN SOUTH MD Mar 30, 2025 17:38
[2025-03-30 17:41] LABS: Hematocrit 37.0 % (41.0-53.0); Hemoglobin 12.2 g/dL (13.5-17.5); Mean Corpuscular Hemoglobin 27.6 pg (28.0-32.0); Mean Corpuscular Volume 84.1 fL (80.0-100.0); Nucleated Red Blood Cells % 0.0 %
[2025-03-30 17:53] LABS: Anion Gap 12 (5-15); Carbon Dioxide 21 mmol/L (20-31); Sodium 142 mmol/L (136-145)
[2025-03-30 17:54] LABS: Calcium 8.8 mg/dL (8.7-10.4)
[2025-03-30 17:57] LABS: Chloride 109 mmol/L (98-107); Potassium 5.3 mmol/L (3.5-5.1)
[2025-03-30 17:59] LABS: BUN/Creatinine Ratio 8.8 (10.0-20.0); Blood Urea Nitrogen 30 mg/dL (9-23); Glucose 78 mg/dL (74-106)
--- NOTE | 2025-03-30 18:09 | DVH ---
EXAM: CT HEAD WITHOUT CONTRAST INDICATION: htn headache TECHNIQUE: CT of the head without intravenous contrast. Radiation Dose : 1. Head: CT Dose: CTDI volume is 56.38 mGy. Dose-length product is 956.03 mGy*cm The dose indicators for CT are the volume Computed Tomography (CT) Dose Index (CTDIvol) and the Dose Length Product (DLP), and are measured in units of mGy and mGy-cm, respectively. These indicators are not patient dose, but values generated from the CT scanner acquisition factors. The report includes radiation exposure data for exposures received during this examination. COMPARISON: None FINDINGS: There is no evidence of acute intracranial hemorrhage, extra-axial collection, mass effect, midline shift, herniation or hydrocephalus. The ventricles, sulci and cisterns are age appropriate. The giordano-white differentiation is intact. Patchy periventricular and subcortical white matter hypoattenuation is nonspecific but may be related to small vessel ischemic disease. Generalized brain atrophy. The visualized paranasal sinuses and mastoid air cells are clear. The surrounding soft tissues and osseous structures are unremarkable. IMPRESSION: No acute intracranial abnormality. Atrophy and chronic small-vessel ischemic changes Radiation optimization: All CT scans at this facility use at least one of these dose optimization techniques: automated exposure control mA and/or kV adjustment per patient size (includes targeted exams where dose is matched to clinical indication) or iterative reconstruction.
[2025-03-30] MEDS: hydrALAZINE HCL 20 MG/ML VL IV ONE ×2 (20:12→20:50)
[2025-03-30 20:36] VITALS: TEMP 98.7
[2025-03-30 20:41] LABS: Sodium 142 mmol/L (136-145)
[2025-03-30 20:42] LABS: Anion Gap 10 (5-15); Calcium 9.1 mg/dL (8.7-10.4); Carbon Dioxide 23 mmol/L (20-31)
[2025-03-30 20:47] LABS: BUN/Creatinine Ratio 9.4 (10.0-20.0)
[2025-03-30 20:55] LABS: Blood Urea Nitrogen 32 mg/dL (9-23); Chloride 109 mmol/L (98-107); Glucose 119 mg/dL (74-106); Potassium 5.3 mmol/L (3.5-5.1)
[2025-03-30] MEDS: SODIUM ZIRCONIUM CYCL 10 GM PAK PO ONE (21:29)
[2025-03-30] MEDS: LISINOPRIL 5 MG TAB PO ONE (21:30)
[2025-03-30] MEDS: SODIUM BICARB 8.4% 50Meq/50ml SYR Vial IV ONE (21:32)
[2025-03-30] MEDS: DEXTROSE (50%) 50ML SYRG IV ONE (21:32)
[2025-03-30] MEDS: CALCIUM GLUC 1,000mg/50ml-NS 50 ML IV SCH (21:32)
[2025-03-30] MEDS: InsuLIN REG 1unit/0.01ml Soln (100units/ml) IV ONE (21:32)
--- NOTE | 2025-03-30 21:40 | DVHINCON2 ---
PEPITO PATEL [facility] [birth year]: Date of service: Mar 30, [address] South Reason for Consultation Medical Management History of Present Illness Mr. Tadeo Payne is a 69-year-old male who presents with a chief complaint of elevated blood pressure . Patient has a medical history of hypertension , BPH, Kidney disease. Patient reports on finishing a 14 day course of Bactrim Aga when he started having a sudden onset of high blood pressure. Patient reports his PCP started him on a new blood pressure medication Lisinopril 10 mg daily which he has not started taking yet. Patient currently denies headaches, chest pain, dizziness, chills, fever, N/V/D, SOB. No other associated symptoms, modifiers, recent injuries or sick contacts present at this time. Patient reports he is feeling better. Past Medical History Hypertension, BPH, Kidney disease Past Surgical History none contributory Family History none contributory Social History Smoker: Non-Smoker Alcohol: Denies ETOH Use Drugs: Denies Drug Use Lives In: Home Allergies: Coded Allergies: NO KNOWN ALLERGIES (Unverified , 12/01/24) Home Meds Active Scripts Nitrofurantoin Monohydrate Mac (Macrobid) 100 Mg Cap, 100 MG PO BID for 7 Days, #14 CAP Prov:MONIKA FOSTER DO 03/13/25 Sodium Bicarbonate (Sodium Bicarbonate) 650 Mg Tab, 650 MG PO DAILY, #14 TAB Prov:JAHAIRA MCKINNEY MD 01/16/25 Metoprolol Tartrate (Lopressor) 25 Mg Tb, 25 MG PO BID for 30 Days, #60 TAB Prov:JAHAIRA MCKINNEY MD 01/16/25 Ondansetron HCl (Ondansetron Hydrochloride) 8 Mg Tab, 8 MG PO Q6HP PRN, #30 TAB Prov:CAMRON ASHLEY MD 01/13/25 Tamsulosin Hcl (Flomax) 0.4 Mg Cap, 0.4 MG PO DAILY for 15 Days, #15 CAP Prov:BRAYAN LEON MD 12/01/24 Current Medications Current Medications Medications (Trade) Dose Ordered Sig/Delmis Route PRN Reason Start Time Stop Time Status Last Admin Calcium Gluconate/ Sodium Chloride 50 ml @ 100 mls/hr Q30M IV 03/30/25 18:30 03/30/25 19:29 DC Review of Systems negative Vital Signs Vital Signs Date Time Temp Pulse Resp B/P (MAP) Pulse Ox O2 Delivery O2 Flow Rate FiO2 03/30/25 21:30 178/99 03/30/25 21:22 104 16 99 03/30/25 20:36 98.7 98.7 03/30/25 20:16 Room Air* 0 21 Physical Exam HEENT pupils are reactive Neck is supple CV is S1-S2 regular rate and rhythm Respiratory diminished breath sounds bases GI positive bowel sound Extremity no edema ISSUER no motor deficit Labs/Diagnostic Data Labs Test 03/30/25 20:20 03/30/25 20:10 03/30/25 17:28 Range/Units Sodium Level 142 136-145 mmol/L Potassium Level 5.3 H 3.5-5.1 mmol/L Chloride Level 109 H 98-107 mmol/L Carbon Dioxide Level 23 20-31 mmol/L Anion Gap 10 5-15 Blood Urea Nitrogen 32 H 9-23 mg/dL Creatinine 3.41 H 0.700-1.30 mg/dL Glomerular Filtration Rate Calc 19 >90 mL/min BUN/Creatinine Ratio 9.4 L 10.0-20.0 Serum Glucose 119 H 74-106 mg/dL Calcium Level 9.1 8.7-10.4 mg/dL Troponin I High Sensitivity 7 </=54 ng/L POC Glucose 123 H 70-106 mg/dl White Blood Count 6.1 4.4-10.8 10^3/uL Red Blood Count 4.40 L 4.5-5.90 10^6/uL Hemoglobin 12.2 L 13.5-17.5 g/dL Hematocrit 37.0 L 41.0-53.0 % Mean Corpuscular Volume 84.1 80.0-100.0 fL Mean Corpuscular Hemoglobin 27.6 L 28.0-32.0 pg Mean Corpuscular Hemoglobin Concent 32.9 32.0-36.0 g/dL Red Cell Distribution Width 15.4 H 11.8-14.3 % Platelet Count 271 140-450 10^3/uL Mean Platelet Volume 6.4 L 6.9-10.8 fL Neutrophils (%) (Auto) 69.3 37.0-80.0 % Lymphocytes (%) (Auto) 22.7 10.0-50.0 % Monocytes (%) (Auto) 6.0 0.0-12.0 % Eosinophils (%) (Auto) 1.5 0.0-7.0 % Basophils (%) (Auto) 0.5 0.0-2.0 % Neutrophils # (Auto) 4.2 1.6-8.6 10 ^3/uL Lymphocytes # (Auto) 1.4 0.4-5.4 10 ^3/uL Monocytes # (Auto) 0.4 0-1.3 10 ^3/uL Eosinophils # (Auto) 0.1 0-0.8 10 ^3/uL Basophils # (Auto) 0 0-0.2 10 ^3/uL Nucleated Red Blood Cells 0.0 % Assessment This is a 69 yo male with a known history of hypertension, BPH, Kidney disease who presents to the hospital with elevated blood pressure. Patient reports he was prescribed Lisinopril 10 mg PO daily by his PCP , however he has not started taking the medication. Patient labs reviewed, radiology reports. Patient with K 5.3 Lokelma PO administered in ED, BUN 30/3.40 patient has an outpatient nephrology consultation. Patient blood pressure 160/104 , denies any headaches, chest pain. Patient reports he is feeling better. Problems(with codes): (1) Hypertension (2) MADHURI (acute kidney injury) (3) Hyperkalemia Plan/Recommendation Patient to be discharged home , patient advised to follow up at urgent care in am for repeat labs and blood pressure measurement. Patient verbalized and agreed to plan and recommendation. Patient administered lisinopril 10 mg PO in ED, Lokelma 10 mg PO . O insurance claim auditor Gloria for UC follow up in am and outpatient follow up with nephrology consult. Plan discussed with: Patient, Other OMERO DICKERSON MD 03/31/25 1244: Allergies: Coded Allergies: NO KNOWN ALLERGIES (Unverified , 12/01/24) Home Meds Active Scripts Nitrofurantoin Monohydrate Mac (Macrobid) 100 Mg Cap, 100 MG PO BID for 7 Days, #14 CAP Prov:MONIKA FOSTER DO 03/13/25 Sodium Bicarbonate (Sodium Bicarbonate) 650 Mg Tab, 650 MG PO DAILY, #14 TAB Prov:JAHAIRA MCKINNEY MD 01/16/25 Metoprolol Tartrate (Lopressor) 25 Mg Tb, 25 MG PO BID for 30 Days, #60 TAB Prov:JAHAIRA MCKINNEY MD 01/16/25 Ondansetron HCl (Ondansetron Hydrochloride) 8 Mg Tab, 8 MG PO Q6HP PRN, #30 TAB Prov:CAMRON ASHLEY MD 01/13/25 Tamsulosin Hcl (Flomax) 0.4 Mg Cap, 0.4 MG PO DAILY for 15 Days, #15 CAP Prov:BRAYAN LEON MD 12/01/24 Additional Comments Additional Comments Additional Comments Chart is reviewed. Patient is seen evaluated and discharged from ER by nurse practitioner. I agree with her evaluation, documentation, assessment and care plan as outlined. PEPITO PATEL Mar 30, 2025 21:40 OMERO DICKERSON MD Mar 31, 2025 12:44
[2025-03-30] MEDS: LABETALOL HCL 20 MG/4 ML VL IV ONE (22:02)
[2025-03-30 22:13] VITALS: BP 160/104; PULSE 92; RESP 14; O2SAT 98
--- NOTE | 2025-04-01 11:17 | ECG ---
[facility] Test Date: 2025-03-30 Test Time: 22:09:05 Pat Name: KENNETH JEFFERY Department: ED Room: Gender: M Sheriff Officer: : [id number] Requested By: EVELIN TEE Order Number: [id number] Reading MD: Jesus Siddiqui Measurements Intervals [place] Rate: 89 P: 48 TX: 199 QRS: -26 QRSD: 108 T: 3 QT: 337 QTc: 410 Interpretive Statements Sinus rhythm Borderline left axis deviation Low voltage, precordial leads Abnormal R-wave progression, late transition Electronically Signed On 04-02-2025 17:54:29 PST by Jesus Siddiqui Please click the below link to view image of tracing.
== END 2025-03-30 22:17 | disposition home or self-care (01) ==
LOC: ER 16:36
DX: I16.0 Hypertensive urgency (principal); N17.9 Acute kidney failure, unspecified; E87.5 Hyperkalemia; I10 Essential (primary) hypertension; Z79.899 Other long term (current) drug therapy
CPT/HCPCS: 36415; 70450; 71045; 80048; 82962; 84484; 85025; 93005; 96374; 96375; 96376; 99291; J0360